=== PATIENT | male | born 1980 | race Two or more races ===

== ENCOUNTER 2017-01-22 21:25 | Emergency (ER) | payer MEDICAID ==
[~2017-01-22] VITALS: Ht 193 cm; Wt 181.4 kg
[~2017-01-22 21:25] MED LIST: BACL10TA; CARBAMAZEPINE PO; CLIN1CAP4 PO; CLOP75TA28; FAM20T PO; FURO20TA3 PO; LEVO500T3 PO; NOR5T PO; PHEN100C70; POT10T PO; WARF2TAB49 PO; WARF5TAB71 PO
[2017-01-22 22:52] LABS: Basophils # (auto) 0 uL; Basophils % (auto) 0.5 % (0.0-2.0); Eosinophils # (auto) 0.4 uL; Eosinophils % (auto) 3.7 % (0.0-7.0); Hematocrit 41.3 % (41.0-53.0); Hemoglobin 13.6 g/dL (13.5-17.5); Lymphocytes # (auto) 3.4 uL; Lymphocytes % (auto) 34.7 % (10.0-50.0); Mean Corpuscular Hemoglobin 27.6 pg (28.0-32.0); Mean Corpuscular Volume 83.7 fL (80.0-100.0); Mean Platelet Volume 7.7 fL (7.4-10.4); Monocytes # (auto) 0.5 uL; Monocytes % (auto) 5.4 % (0.0-12.0); Neutrophils # (auto) 5.4 uL; Neutrophils % (auto) 55.7 % (37.0-80.0); Platelet Count (auto) 293 10^3/uL (140-450); Red Cell Distribution Width 15.1 % (11.6-16.0); White Blood Cell 9.7 10^3/uL (4.4-10.8)
[2017-01-22 23:16] LABS: Albumin 3.7 g/dL (3.4-5.0); BUN/Creatinine Ratio 20.3; Calcium 8.3 mg/dL (8.5-10.1); Potassium 4.1 mmol/L (3.5-5.1)
[2017-01-22 23:19] LABS: Bilirubin, Total 0.4 mg/dL (0.2-1.0); Total Protein 7.2 g/dL (6.4-8.2)
[2017-01-23] MEDS ORDERED: CLINDAMYCIN 600 MG/4 ML VL IM ONE (04:15)
[2017-01-23 06:57] VITALS: BP 121/76
== END 2017-01-23 06:59 | disposition home or self-care (01) ==
LOC: ER 21:42
DX: L03.116 Cellulitis of left lower limb (principal); I10 Essential (primary) hypertension; F17.210 Nicotine dependence, cigarettes, uncomplicated; L97.929 Non-pressure chronic ulcer of unspecified part of left lower leg with unspecified severity; Z86.718 Personal history of other venous thrombosis and embolism; E66.01 Morbid (severe) obesity due to excess calories; Z68.42 Body mass index [BMI] 45.0-49.9, adult; Z79.01 Long term (current) use of anticoagulants
CPT/HCPCS: 36415; 73590; 80053; 85025; 87077; 87186; 87205; 96372

== ENCOUNTER 2017-09-14 17:53 | Emergency (ER) | payer MEDICAID ==
[~2017-09-14] VITALS: Ht 190.5 cm; Wt 176.4 kg
[~2017-09-14 17:53] MED LIST changes: +HYDR-4683 PO; +LEVO500T21 PO; -LEVO500T3 PO; -NOR5T PO
[2017-09-14 19:26] LABS: Basophils # (auto) 0.1 uL; Basophils % (auto) 0.7 % (0.0-2.0); Eosinophils # (auto) 0.2 uL; Eosinophils % (auto) 1.9 % (0.0-7.0); Hematocrit 42.9 % (41.0-53.0); Hemoglobin 14.4 g/dL (13.5-17.5); Lymphocytes # (auto) 3.2 uL; Lymphocytes % (auto) 28.7 % (10.0-50.0); Mean Corpuscular Hemoglobin 28.1 pg (28.0-32.0); Mean Corpuscular Hgb Conc. 33.6 g/dL (32.0-36.0); Mean Corpuscular Volume 83.6 fL (80.0-100.0); Mean Platelet Volume 7.2 fL (6.9-10.8); Monocytes # (auto) 0.7 uL; Monocytes % (auto) 6.6 % (0.0-12.0); Neutrophils # (auto) 7.1 uL; Neutrophils % (auto) 62.1 % (37.0-80.0); Nucleated Red Blood Cells % 0.2 %; Platelet Count (auto) 305 10^3/uL (140-450); Red Cell Distribution Width 14.8 % (11.8-14.3); White Blood Cell 11.3 10^3/uL (4.4-10.8)
[2017-09-14 19:55] LABS: Albumin 3.9 g/dL (3.4-5.0); BUN/Creatinine Ratio 19.5; Bilirubin, Total 0.6 mg/dL (0.2-1.0); Calcium 8.5 mg/dL (8.5-10.1); Potassium 4.1 mmol/L (3.5-5.1); Total Protein 7.9 g/dL (6.4-8.2)
[2017-09-15] MEDS ORDERED: SILVER SULFADIAZINE 1 % TOPICAL CREAM 50GM TOP ONE ×2 (01:23→01:45)
[2017-09-15 01:45] VITALS: BP 110/70
== END 2017-09-15 01:54 | disposition home or self-care (01) ==
LOC: ER 18:03
DX: I87.2 Venous insufficiency (chronic) (peripheral) (principal); L97.929 Non-pressure chronic ulcer of unspecified part of left lower leg with unspecified severity; Z79.01 Long term (current) use of anticoagulants
CPT/HCPCS: 36415; 80053; 85025; 93971

== ENCOUNTER 2018-06-09 04:43 | Emergency (ER) | payer MEDICAID ==
[~2018-06-09] VITALS: Ht 188 cm; Wt 181.4 kg
[2018-06-09 06:36] LABS: Basophils # (auto) 0 uL; Basophils % (auto) 0.5 % (0.0-2.0); Eosinophils # (auto) 0.1 uL; Eosinophils % (auto) 1.7 % (0.0-7.0); Hematocrit 44.8 % (41.0-53.0); Hemoglobin 15.2 g/dL (13.5-17.5); Lymphocytes # (auto) 2.8 uL; Lymphocytes % (auto) 33.9 % (10.0-50.0); Mean Corpuscular Hemoglobin 28.6 pg (28.0-32.0); Mean Corpuscular Hgb Conc. 33.9 g/dL (32.0-36.0); Mean Corpuscular Volume 84.6 fL (80.0-100.0); Monocytes # (auto) 0.6 uL; Monocytes % (auto) 6.9 % (0.0-12.0); Neutrophils # (auto) 4.8 uL; Nucleated Red Blood Cells % 0.3 %; Platelet Count (auto) 258 10^3/uL (140-450); Red Cell Distribution Width 14.6 % (11.8-14.3); White Blood Cell 8.4 10^3/uL (4.4-10.8)
[2018-06-09 06:59] LABS: Albumin 3.9 g/dL (3.4-5.0); BUN/Creatinine Ratio 20.3; Bilirubin, Total 0.8 mg/dL (0.2-1.0); Calcium 8.4 mg/dL (8.5-10.1); Potassium 4.1 mmol/L (3.5-5.1); Total Protein 7.6 g/dL (6.4-8.2)
[2018-06-09] MEDS ORDERED: KETOROLAC TROMETH 30 MG/ML 1ML VIAL IV ONE (07:00)
[2018-06-09 07:26] VITALS: BP 144/70
[2018-06-09] MEDS ORDERED: ENOXAPARIN SOD 100 MG/1 ML SYRINGE SC ONE (09:15)
== END 2018-06-09 09:33 | disposition home or self-care (01) ==
LOC: EDUNIT# 04:43 → ER 04:46
DX: M79.605 Pain in left leg (principal); E66.01 Morbid (severe) obesity due to excess calories; Z79.01 Long term (current) use of anticoagulants; Z79.899 Other long term (current) drug therapy; Z86.718 Personal history of other venous thrombosis and embolism; Z68.43 Body mass index [BMI] 50.0-59.9, adult
CPT/HCPCS: 36415; 80053; 85025; 85379; 93971; 96372; 96374; 99285; J1650; J1885

== ENCOUNTER 2018-06-15 11:40 | Emergency (ER) | payer MEDICAID ==
[~2018-06-15] VITALS: Ht 185.4 cm; Wt 181.4 kg
[2018-06-15] MEDS ORDERED: HYDROcodone-ACET 10/325MG TAB PO ONE (11:45)
[2018-06-15 11:47] VITALS: BP 140/78
== END 2018-06-15 12:17 | disposition home or self-care (01) ==
LOC: EDBD 11:40 → ER 11:40
DX: M79.605 Pain in left leg (principal); E66.01 Morbid (severe) obesity due to excess calories; F17.210 Nicotine dependence, cigarettes, uncomplicated; Z79.01 Long term (current) use of anticoagulants; Z79.899 Other long term (current) drug therapy; Z86.718 Personal history of other venous thrombosis and embolism; Z68.43 Body mass index [BMI] 50.0-59.9, adult

== ENCOUNTER 2018-10-26 20:27 | Emergency (ER) | payer MEDICAID ==
[~2018-10-26] VITALS: Ht 185.4 cm; Wt 195.0 kg
[2018-10-26 22:10] LABS: Basophils # (auto) 0 uL; Basophils % (auto) 0.5 % (0.0-2.0); Eosinophils # (auto) 0.3 uL; Eosinophils % (auto) 3.2 % (0.0-7.0); Hematocrit 37.2 % (41.0-53.0); Hemoglobin 12.2 g/dL (13.5-17.5); Lymphocytes # (auto) 1.9 uL; Lymphocytes % (auto) 20.7 % (10.0-50.0); Mean Corpuscular Hemoglobin 28.1 pg (28.0-32.0); Mean Corpuscular Hgb Conc. 32.9 g/dL (32.0-36.0); Mean Corpuscular Volume 85.3 fL (80.0-100.0); Monocytes # (auto) 0.8 uL; Monocytes % (auto) 8.4 % (0.0-12.0); Neutrophils # (auto) 6.1 uL; Neutrophils % (auto) 67.2 % (37.0-80.0); Platelet Count (auto) 301 10^3/uL (140-450); Red Blood Cells 4.36 10^6/uL (4.5-5.90); Red Cell Distribution Width 14.9 % (11.8-14.3)
[2018-10-26 22:26] LABS: INR 0.97 (0.9-1.15); Partial Thromboplastin Time 28.3 sec (23.78-33.04); Prothrombin Time 10.4 sec (9.27-12.13)
[2018-10-26 22:44] LABS: Alanine Aminotransferase 33 U/L (16-61); Albumin 3.5 g/dL (3.4-5.0); Anion Gap 5 (5-15); Blood Urea Nitrogen 13 mg/dL (7-18); Calcium 8.1 mg/dL (8.5-10.1); Carbon Dioxide 25 mmol/L (21-32); Chloride 110 mmol/L (98-107); Glucose 98 mg/dL (74-106); Magnesium 1.9 mg/dL (1.6-2.6); Potassium 4.1 mmol/L (3.5-5.1); Sodium 140 mmol/L (136-145)
[2018-10-26 22:51] LABS: Alkaline Phosphatase 94 U/L (45-117); Aspartate Aminotransferase 17 U/L (15-37); BUN/Creatinine Ratio 18.6; Bilirubin, Total 0.5 mg/dL (0.2-1.0); GFR African American 161 mL/min; GFR Non-African American 133 mL/min; Total Protein 7.4 g/dL (6.4-8.2)
[2018-10-27 01:00] VITALS: BP 110/55
[2018-10-27] MEDS ORDERED: ENOXAPARIN SOD 150 MG/1 ML SYRINGE SC ONE (01:00)
[2018-10-27] MEDS ORDERED: ACETAMINOPHEN 325 MG TAB PO PRN (01:15)
[2018-10-27] MEDS ORDERED: TEMAZEPAM 15 MG CAP PO PRN (01:15)
[2018-10-27] MEDS ORDERED: ONDANSETRON HCL 4 MG/2 ML VIAL IV PRN (01:15)
[2018-10-27] MEDS ORDERED: HYDROcodone-ACET 5/325MG TAB PO PRN (01:15)
[2018-10-27] MEDS ORDERED: carBAMazepine 200 MG TAB PO SCH (06:00)
[2018-10-27] MEDS ORDERED: CLOPIDOGREL BISULFATE 75 MG TAB PO SCH (10:00)
[2018-10-27] MEDS ORDERED: ENOXAPARIN SOD 100 MG/1 ML SYRINGE SC SCH (10:00)
[2018-10-27] MEDS ORDERED: FAMOTIDINE 20 MG TAB PO SCH (10:00)
[2018-10-27] MEDS ORDERED: PHENYTOIN SODIUM 100 MG CAP PO SCH (22:00)
== END 2018-10-27 01:56 | disposition left against medical advice (07) ==
LOC: EDBD 20:27 → ER 20:36
DX: I82.402 Acute embolism and thrombosis of unspecified deep veins of left lower extremity (principal); Z91.14 Patient's other noncompliance with medication regimen; F17.210 Nicotine dependence, cigarettes, uncomplicated; Z79.899 Other long term (current) drug therapy
CPT/HCPCS: 36415; 71045; 80053; 83735; 83880; 84443; 84484; 85025; 85379; 85610; 85730; 93971

== ENCOUNTER 2020-04-30 20:50 | Inpatient (IN) | payer MEDICAID ==
[~2020-04-30] VITALS: Ht 195.6 cm; Wt 181.5 kg
[~2020-04-30 20:50] MED LIST changes: +APIX5TAB OR; -CARBAMAZEPINE PO; -CLIN1CAP4 PO; +CLIN300C8 PO; -CLOP75TA28; -FAM20T PO; +FAMO20TA10 PO; -FURO20TA3 PO; -HYDR-4683 PO; +HYDR-4833 PO; -PHEN100C70; -POT10T PO; -WARF2TAB49 PO; -WARF5TAB71 PO
[2020-05-01 00:19] LABS: Basophils # (auto) 0.1 10 ^3/uL (0-0.2); Basophils % (auto) 0.7 % (0.0-2.0); Eosinophils # (auto) 0.4 10 ^3/uL (0-0.8); Eosinophils % (auto) 3.7 % (0.0-7.0); Hematocrit 40.9 % (41.0-53.0); Hemoglobin 13.4 g/dL (13.5-17.5); Lymphocytes # (auto) 2.8 10 ^3/uL (0.4-5.4); Lymphocytes % (auto) 26.3 % (10.0-50.0); Mean Corpuscular Hemoglobin 27.4 pg (28.0-32.0); Mean Corpuscular Hgb Conc. 32.7 g/dL (32.0-36.0); Mean Corpuscular Volume 83.7 fL (80.0-100.0); Monocytes # (auto) 0.9 10 ^3/uL (0-1.3); Monocytes % (auto) 8.4 % (0.0-12.0); Neutrophils # (auto) 6.4 10 ^3/uL (1.6-8.6); Neutrophils % (auto) 60.9 % (37.0-80.0); Nucleated Red Blood Cells % 0.1 %; Platelet Count (auto) 203 10^3/uL (140-450); Red Blood Cells 4.88 10^6/uL (4.5-5.90); Red Cell Distribution Width 15.9 % (11.8-14.3); White Blood Cell 10.5 10^3/uL (4.4-10.8)
[2020-05-01 00:27] LABS: Alanine Aminotransferase 32 U/L (16-61); Albumin 3.5 g/dL (3.4-5.0); Anion Gap 7 (5-15); Aspartate Aminotransferase 20 U/L (15-37); BUN/Creatinine Ratio 19.8; Blood Urea Nitrogen 16 mg/dL (7-18); Calcium 7.9 mg/dL (8.5-10.1); Carbon Dioxide 24 mmol/L (21-32); Chloride 109 mmol/L (98-107); GFR African American 136 mL/min; GFR Non-African American 112 mL/min; Glucose 101 mg/dL (74-106); Potassium 4.2 mmol/L (3.5-5.1); Sodium 140 mmol/L (136-145)
[2020-05-01 00:29] LABS: Alkaline Phosphatase 85 U/L (45-117); Total Protein 7.4 g/dL (6.4-8.2)
[2020-05-01 00:36] LABS: INR 0.99 (0.9-1.15); Partial Thromboplastin Time 25.1 sec (23.64-32.05)
[2020-05-01] MEDS ORDERED: cefTRIAXone 1GM/50ML D5W 50 ML IV ONE (02:45)
[2020-05-01] MEDS ORDERED: CLINDAMYCIN 900MG IV 50 ML IV ONE (02:45)
[2020-05-01] MEDS ORDERED: ACETAMINOPHEN 325 MG TAB PO PRN (05:00)
[2020-05-01] MEDS ORDERED: TEMAZEPAM 15 MG CAP PO PRN (05:00)
[2020-05-01] MEDS ORDERED: ONDANSETRON HCL 4 MG/2 ML VIAL IV PRN (05:00)
[2020-05-01] MEDS ORDERED: CLINDAMYCIN 600MG IV 50 ML IV SCH ×2 (06:00→14:00)
[2020-05-01 08:09] VITALS: BP 94/46
[2020-05-01] MEDS ORDERED: cefTRIAXone 1GM/50ML D5W 50 ML IV SCH (09:00)
[2020-05-01] MEDS ORDERED: APIX5TAB PO (09:56)
[2020-05-01] MEDS ORDERED: ENOXAPARIN SOD 100 MG/1 ML SYRINGE SC SCH (10:00)
[2020-05-01] MEDS ORDERED: APIXABAN 5 MG TAB PO SCH (10:00)
[2020-05-01] MEDS ORDERED: FAMOTIDINE 20 MG TAB PO SCH (10:00)
[2020-05-01] MEDS ORDERED: CLIN150C PO (11:32)
== END 2020-05-01 13:30 | disposition home or self-care (01) | DRG 383 ==
LOC: EDBD 20:50 → ER 20:52 → OVERFLOW 20:53 → MERGE 20:53 → WEST WING 05-01 09:37
PROVIDERS: ADMIT Nurse Practitioner; ATTEND Internal Medicine
DX: L03.116 Cellulitis of left lower limb (principal); I82.412 Acute embolism and thrombosis of left femoral vein; E66.01 Morbid (severe) obesity due to excess calories; L02.416 Cutaneous abscess of left lower limb; Z86.718 Personal history of other venous thrombosis and embolism; Z79.01 Long term (current) use of anticoagulants; Z68.42 Body mass index [BMI] 45.0-49.9, adult; Z79.899 Other long term (current) drug therapy; D68.69 Other thrombophilia
CPT/HCPCS: 36415; 73700; 80053; 85025; 85610; 85730; 87077; 87186; 87205; 93971; 96365; 96367; G0378; J0696; J3490

== ENCOUNTER 2020-08-20 14:46 | Emergency (ER) | payer MEDICAID ==
[~2020-08-20] VITALS: Ht 180.3 cm; Wt 181.4 kg
[~2020-08-20 14:46] MED LIST changes: +APIX5TAB PO; +CLIN150C PO
[2020-08-20 23:53] VITALS: BP 155/81
== END 2020-08-20 23:56 | disposition home or self-care (01) ==
LOC: ER 14:46 → EDBD 14:46 → ER 23:56
DX: S83.92XA Sprain of unspecified site of left knee, initial encounter (principal); S33.5XXA Sprain of ligaments of lumbar spine, initial encounter; L30.9 Dermatitis, unspecified; I10 Essential (primary) hypertension; Z88.0 Allergy status to penicillin; Z79.899 Other long term (current) drug therapy; W19.XXXA Unspecified fall, initial encounter; Y93.89 Activity, other specified; Y92.89 Other specified places as the place of occurrence of the external cause; Y99.8 Other external cause status
CPT/HCPCS: 72100; 73562; 73610

== ENCOUNTER 2020-08-30 13:04 | Inpatient (IN) | payer MEDICAID ==
[~2020-08-30] VITALS: Ht 195.6 cm; Wt 181.4 kg
[2020-08-30 14:25] LABS: Albumin 3.1 g/dL (3.4-5.0); Anion Gap 6 (5-15); Blood Urea Nitrogen 12 mg/dL (7-18); Carbon Dioxide 21 mmol/L (21-32); Chloride 108 mmol/L (98-107); Glucose 117 mg/dL (74-106); Potassium 5.1 mmol/L (3.5-5.1); Sodium 135 mmol/L (136-145)
[2020-08-30 14:29] LABS: Alanine Aminotransferase 29 U/L (16-61); Alkaline Phosphatase 74 U/L (45-117); Aspartate Aminotransferase 62 U/L (15-37); BUN/Creatinine Ratio 12.6; Bilirubin, Total 1.5 mg/dL (0.2-1.0); GFR African American 112 mL/min; GFR Non-African American 93 mL/min
[2020-08-30 16:31] LABS: Basophils # (auto) 0.1 10 ^3/uL (0-0.2); Basophils % (auto) 0.5 % (0.0-2.0); Eosinophils # (auto) 0 10 ^3/uL (0-0.8); Eosinophils % (auto) 0.1 % (0.0-7.0); Hematocrit 42.2 % (41.0-53.0); Lymphocytes % (auto) 18.5 % (10.0-50.0); Mean Corpuscular Hemoglobin 28.4 pg (28.0-32.0); Mean Corpuscular Hgb Conc. 33.2 g/dL (32.0-36.0); Mean Corpuscular Volume 85.5 fL (80.0-100.0); Monocytes # (auto) 1.1 10 ^3/uL (0-1.3); Monocytes % (auto) 9.8 % (0.0-12.0); Neutrophils # (auto) 7.8 10 ^3/uL (1.6-8.6); Neutrophils % (auto) 71.1 % (37.0-80.0); Nucleated Red Blood Cells % 0.1 %; Platelet Count (auto) 237 10^3/uL (140-450); Red Blood Cells 4.93 10^6/uL (4.5-5.90); Red Cell Distribution Width 15.1 % (11.8-14.3)
[2020-08-30] MEDS ORDERED: ACETAMINOPHEN 500 MG TAB PO PRN (17:45)
[2020-08-30] MEDS ORDERED: ONDANSETRON HCL 4 MG/2 ML VIAL IV PRN (17:45)
[2020-08-30] MEDS ORDERED: DOCUSATE SOD 100 MG CAP PO PRN (17:45)
[2020-08-30] MEDS ORDERED: NITROGLYCERIN 0.4 MG SL TAB SL PRN (17:45)
[2020-08-30] MEDS ORDERED: SODIUM CHLORIDE 0.9% 1,000 ML IV ONE (17:45)
[2020-08-30] MEDS ORDERED: MORPHINE SULF INJ 2 MG/ML SYRINGE 1ML IV PRN ×2 (17:45)
[2020-08-30] MEDS: HYDROcodone-ACET 5/325MG TAB PO PRN (19:40)
[2020-08-30 20:00] LABS: INR 1.08 (0.9-1.15); Partial Thromboplastin Time 21.7 sec (23.0-31.2)
[2020-08-30 20:38] LABS: Urine Bacteria NONE SEEN /hpf (None Seen); Urine Blood Negative /uL (Negative); Urine Hyaline Cast FEW /lpf (0 - 2); Urine Mucus FEW (None Seen); Urine WBC <1 /hpf (0 - 3)
[2020-08-30 20:47] LABS: Alcohol, Urine < 3.0 mg/dL (0-10); Amphetamine Screen, Urine NEGATIVE (NEGATIVE); Barbiturate Scree,Urine NEGATIVE (NEGATIVE); Benzodiazephine Screen, Urine NEGATIVE (NEGATIVE); Cannabinoid Screen, Urine NEGATIVE (NEGATIVE); Cocaine Screen, Urine NEGATIVE (NEGATIVE); Opiate Scree,Urine NEGATIVE (NEGATIVE); Phencyclidine Screen, Urine NEGATIVE (NEGATIVE)
[2020-08-30] MEDS: APIXABAN 5 MG TAB PO SCH (21:47)
[2020-08-30] MEDS: METOPROLOL TARTRATE 25 MG TAB PO SCH (21:48)
[2020-08-31 03:51] VITALS: BP 121/74
--- NOTE | 2020-08-31 03:51 | NUR ---
PATIENT ARRIVED TO THE UNIT IA STRETCHER FROM THE EMERGENCY ROOM. CAME TO ER WITH AFIB W/RVR IN THE 150'S CURRENTLY HE IS STILL IN AFIB WITH A CONTROLLED RATE IN THE 70'S-80'S. PATIENT WAS ABLE TO AMBULATE WITH STANDBY ASSISTANCE TO THE BED. COMPLAINS OF 5/10 PAIN TO THE LEFT LEG. PATIENT STATES HE HAS A BLOOD CLOT TO THE LEFT LEG. HE ALSO HAS 2 SMALL CIRCULAR HOLES (1 TO THE LATERAL SIDE AND 1 TO THE POSTERIOR). HAS NO COMPLAINTS OF SHORTNESS OF BREATH. BED IS LOCKED IN LOWEST POSITION WITH SIDE RAILS UP X2. ALL QUESTIONS REGARDING PATIENT CARE ANSWERED. WILL CONTINUE TO MONITOR.
[2020-08-31] MEDS: HYDROcodone-ACET 5/325MG TAB PO PRN (04:30)
--- NOTE | 2020-08-31 04:39 | NUR ---
WOUND PICTURES OF LEFT LEG WOUNDS TAKEN. PICTURES ON CENTRAL CAMERA.
[2020-08-31 05:00] VITALS: BP 121/74
--- NOTE | 2020-08-31 05:50 | NUR ---
[facility] SWAB SENT TO LAB AT THIS TIME.
[2020-08-31] MEDS ORDERED: INFLUENZA QUAD 2020-2021 0.5 ML SYRG IM ONE (06:00)
[2020-08-31] MEDS ORDERED: PNEUMOCOCCAL VACC POLYS 25 MCG/0.5 ML VIAL IM ONE (06:00)
--- NOTE | 2020-08-31 07:30 | NUR ---
Opening Shift Note RECEIVED REPORT FROM NOC RN. Assumed care of patient, awake and alert. No S/S of distress/SOB or pain. BED IN LOWEST, LOCKED POSITION WITH SIDERAILS UP x2 AND CALL LIGHT WITHIN REACH. Instructed on POC and to call for assist PRN, will continue to monitor for changes Q1hr and PRN.
[2020-08-31 09:00] VITALS: BP 125/69
[2020-08-31] MEDS ORDERED: PANTOPRAZOLE 40 MG TAB PO SCH (10:00)
[2020-08-31] MEDS: APIXABAN 5 MG TAB PO SCH (10:16)
[2020-08-31] MEDS: METOPROLOL TARTRATE 25 MG TAB PO SCH (10:16)
[2020-08-31 13:00] VITALS: BP 132/78
--- NOTE | 2020-08-31 14:15 | NUR ---
Discharge instructions given as ordered. Encourage to follow up with PMD as instructed. All questions and concerns addressed. Patient verbalized understanding. Medication reconciliation form completed and copy given to patient. IV removed with catheter intact, pressure dressing applied. Telemetry unit returned to ICU. Patient taken to vehicle via wheelchair with all personal belongings, accompanied by staff. No distress noted at time of departure.
--- NOTE | 2020-09-03 10:24 | NUR ---
SEWING LINE BALER WEEKEND 08/31/20 No page regarding social service consult for readmission score.
== END 2020-08-31 14:45 | disposition home or self-care (01) | DRG 201 ==
LOC: ER 13:04 → TELE 17:35 → TELE-EAST 08-31 04:23
PROVIDERS: ADMIT Nurse Practitioner Acute Care; ATTEND Nurse Practitioner Acute Care
DX: I48.91 Unspecified atrial fibrillation (principal); E66.01 Morbid (severe) obesity due to excess calories; E88.09 Other disorders of plasma-protein metabolism, not elsewhere classified; E87.1 Hypo-osmolality and hyponatremia; F17.210 Nicotine dependence, cigarettes, uncomplicated; I10 Essential (primary) hypertension; I48.92 Unspecified atrial flutter; Z20.828 Contact with and (suspected) exposure to other viral communicable diseases; Z79.01 Long term (current) use of anticoagulants; Z79.899 Other long term (current) drug therapy; Z82.49 Family history of ischemic heart disease and other diseases of the circulatory system; Z86.718 Personal history of other venous thrombosis and embolism; Z83.3 Family history of diabetes mellitus; Z88.0 Allergy status to penicillin; Z88.1 Allergy status to other antibiotic agents; Z68.42 Body mass index [BMI] 45.0-49.9, adult
CPT/HCPCS: 36415; 71045; 73060; 73560; 80053; 80307; 81001; 83735; 83880; 84484; 85025; 85610; 85730; 87081; 87426; G0378

== ENCOUNTER 2021-03-20 19:10 | Inpatient (IN) | payer MEDICAID ==
[~2021-03-20] VITALS: Ht 195.6 cm; Wt 174.0 kg
[~2021-03-20 19:10] MED LIST changes: -LEVO500T21 PO; +LEVO500T31 PO
[2021-03-20] MEDS ORDERED: ACETAMINOPHEN 325 MG TAB PO ONE (20:30)
[2021-03-20] MEDS ORDERED: DexAMETHasone SOD PHOS 10MG/1ML VIAL INJ IV ONE (20:45)
[2021-03-20] MEDS ORDERED: SODIUM CHLORIDE 0.9% 1,000 ML IV ONE (20:45)
[2021-03-20 20:56] LABS: Basophils # (auto) 0 10 ^3/uL (0-0.2); Basophils % (auto) 0.2 % (0.0-2.0); Eosinophils # (auto) 0 10 ^3/uL (0-0.8); Hematocrit 45.5 % (41.0-53.0); Hemoglobin 15.5 g/dL (13.5-17.5); Lymphocytes % (auto) 24.1 % (10.0-50.0); Mean Corpuscular Hemoglobin 28.2 pg (28.0-32.0); Mean Corpuscular Hgb Conc. 34.1 g/dL (32.0-36.0); Mean Corpuscular Volume 82.6 fL (80.0-100.0); Monocytes # (auto) 0.5 10 ^3/uL (0-1.3); Monocytes % (auto) 11.8 % (0.0-12.0); Neutrophils # (auto) 2.8 10 ^3/uL (1.6-8.6); Neutrophils % (auto) 63.9 % (37.0-80.0); Nucleated Red Blood Cells % 0.2 %; Platelet Count (auto) 182 10^3/uL (140-450); Red Blood Cells 5.51 10^6/uL (4.5-5.90); Red Cell Distribution Width 15.7 % (11.8-14.3); White Blood Cell 4.3 10^3/uL (4.4-10.8)
[2021-03-20 21:09] LABS: INR 1.08 (0.9-1.15); Partial Thromboplastin Time 32.2 sec (23.0-31.2)
[2021-03-20 21:11] LABS: Anion Gap 10 (5-15); Blood Urea Nitrogen 13 mg/dL (7-18); Calcium 7.7 mg/dL (8.5-10.1); Carbon Dioxide 22 mmol/L (21-32); Chloride 104 mmol/L (98-107); Glucose 98 mg/dL (74-106); Potassium 4.6 mmol/L (3.5-5.1); Sodium 136 mmol/L (136-145)
[2021-03-20 21:16] LABS: Alanine Aminotransferase 64 U/L (16-61); Alkaline Phosphatase 78 U/L (45-117); Aspartate Aminotransferase 134 U/L (15-37); BUN/Creatinine Ratio 13.4; Bilirubin, Total 1.2 mg/dL (0.2-1.0); GFR African American 110 mL/min; GFR Non-African American 91 mL/min; Total Protein 7.4 g/dL (6.4-8.2)
[2021-03-20 23:00] LABS: Urine Bacteria NONE SEEN /hpf (None Seen); Urine Blood 1+ /uL (Negative); Urine Specific Gravity 1.022 (1.001-1.035); Urine WBC 1 /hpf (0 - 3)
[2021-03-20] MEDS ORDERED: IOHEXOL 350 MG/ML 100ML IJ ONE (23:59)
[2021-03-21] VITALS (9 sets, daily range): BP systolic 96–154; BP diastolic 53–91
[2021-03-21] MEDS ORDERED: HYDROcodone-ACET 5/325MG TAB PO PRN (01:00)
[2021-03-21] MEDS ORDERED: NITROGLYCERIN 0.4 MG SL TAB SL PRN (01:00)
[2021-03-21] MEDS ORDERED: MORPHINE SULF INJ 2 MG/ML SYRINGE 1ML IV PRN (01:00)
[2021-03-21] MEDS ORDERED: ONDANSETRON HCL 4 MG/2 ML VIAL IV PRN (01:00)
[2021-03-21] MEDS ORDERED: DOCUSATE SOD 100 MG CAP PO PRN (01:00)
[2021-03-21] MEDS ORDERED: PNEUMOCOCCAL VACC POLYS 25 MCG/0.5 ML VIAL IM ONE (04:15)
[2021-03-21] MEDS ORDERED: INFLUENZA QUAD 2020-2021 0.5 ML SYRG IM ONE (04:15)
[2021-03-21] MEDS: SODIUM CHLOR 0.9% PF (SALINE LOCK) 10ML VIAL/SYR IV SCH ×3 (05:41→22:00)
[2021-03-21 07:09] LABS: Basophils # (auto) 0 10 ^3/uL (0-0.2); Basophils % (auto) 0.1 % (0.0-2.0); Eosinophils # (auto) 0 10 ^3/uL (0-0.8); Hematocrit 46.3 % (41.0-53.0); Hemoglobin 15.6 g/dL (13.5-17.5); Lymphocytes # (auto) 0.7 10 ^3/uL (0.4-5.4); Lymphocytes % (auto) 24.4 % (10.0-50.0); Mean Corpuscular Hemoglobin 27.9 pg (28.0-32.0); Mean Corpuscular Hgb Conc. 33.7 g/dL (32.0-36.0); Mean Corpuscular Volume 82.8 fL (80.0-100.0); Monocytes # (auto) 0.3 10 ^3/uL (0-1.3); Monocytes % (auto) 9.5 % (0.0-12.0); Nucleated Red Blood Cells % 0.4 %; Platelet Count (auto) 192 10^3/uL (140-450); Potassium 4.5 mmol/L (3.5-5.1); Red Blood Cells 5.59 10^6/uL (4.5-5.90); Red Cell Distribution Width 16.3 % (11.8-14.3)
[2021-03-21 07:27] LABS: Albumin 2.8 g/dL (3.4-5.0); BUN/Creatinine Ratio 19.7; Bilirubin, Total 1.1 mg/dL (0.2-1.0); Calcium 7.7 mg/dL (8.5-10.1); Total Protein 7.1 g/dL (6.4-8.2)
[2021-03-21] MEDS: BUDESONIDE (INHALATION) 180 MCG IH IN SCH ×2 (08:30→22:29)
[2021-03-21] MEDS ORDERED: ENOXAPARIN SOD 40 MG/0.4 ML SYRINGE SC SCH ×2 (10:00→22:00)
[2021-03-21] MEDS ORDERED: MULTIPLE VITAMIN TAB PO SCH (10:00)
[2021-03-21] MEDS: FAMOTIDINE (10MG/ML) 2ML VL IV SCH ×2 (10:43→22:00)
[2021-03-21] MEDS: DexAMETHasone SOD PHOS 10MG/1ML VIAL INJ IV SCH (10:44)
[2021-03-21] MEDS: CHOLECALCIFEROL (VITD3) 2,000 UNIT CAP/TAB PO SCH (10:46)
[2021-03-21] MEDS: ASCORBIC ACID 1,000 MG TAB PO SCH (10:46)
[2021-03-21] MEDS: ZINC SULFATE 220mg CAP or TAB PO SCH (10:46)
[2021-03-21] MEDS: DOXYCYCLINE 100MG/250ML 250 ML IV SCH ×2 (10:47→22:00)
[2021-03-21] MEDS ORDERED: REMDESIVIR PER PHARMACY 0 ML IV SCH (13:00)
[2021-03-21] MEDS ORDERED: FUROSEMIDE 20 MG/2 ML VIAL IV ONE (13:00)
[2021-03-21] MEDS ORDERED: guaiFENesin-DM 100/10mg/5ml SYR PO PRN (13:15)
[2021-03-21] MEDS ORDERED: REMDESIVIR 200 MG in NS 210ml LOADING DOSE ADULT IV ONE (15:00)
[2021-03-21] MEDS ORDERED: APIXABAN 5 MG TAB PO SCH (22:00)
[2021-03-21] MEDS: ALBUTEROL SULF HFA 90MCG INH 200DOSE IN PRN (22:29)
[2021-03-22] VITALS (60 sets, daily range): BP systolic 78–158; BP diastolic 34–105
[2021-03-22] MEDS: SODIUM CHLOR 0.9% PF (SALINE LOCK) 10ML VIAL/SYR IV SCH ×3 (06:00→22:51)
[2021-03-22] MEDS: BUDESONIDE (INHALATION) 180 MCG IH IN SCH (07:38)
[2021-03-22] MEDS: ALBUTEROL SULF HFA 90MCG INH 200DOSE IN PRN (07:44)
[2021-03-22 09:00] LABS: Basophils # (auto) 0 10 ^3/uL (0-0.2); Basophils % (auto) 0.1 % (0.0-2.0); Eosinophils # (auto) 0 10 ^3/uL (0-0.8); Eosinophils % (auto) 0.1 % (0.0-7.0); Hematocrit 48.2 % (41.0-53.0); Hemoglobin 15.9 g/dL (13.5-17.5); Lymphocytes # (auto) 1.2 10 ^3/uL (0.4-5.4); Lymphocytes % (auto) 12.9 % (10.0-50.0); Mean Corpuscular Hemoglobin 27.5 pg (28.0-32.0); Mean Corpuscular Hgb Conc. 32.9 g/dL (32.0-36.0); Mean Corpuscular Volume 83.7 fL (80.0-100.0); Monocytes # (auto) 0.7 10 ^3/uL (0-1.3); Monocytes % (auto) 7.2 % (0.0-12.0); Neutrophils # (auto) 7.4 10 ^3/uL (1.6-8.6); Neutrophils % (auto) 79.7 % (37.0-80.0); Nucleated Red Blood Cells % 0.2 %; Platelet Count (auto) 272 10^3/uL (140-450); Red Blood Cells 5.76 10^6/uL (4.5-5.90); Red Cell Distribution Width 16.2 % (11.8-14.3); White Blood Cell 9.3 10^3/uL (4.4-10.8)
[2021-03-22 09:13] LABS: Albumin 2.9 g/dL (3.4-5.0); Magnesium 1.9 mg/dL (1.6-2.6); Potassium 4.1 mmol/L (3.5-5.1)
[2021-03-22 09:17] LABS: BUN/Creatinine Ratio 20.3; Bilirubin, Total 1.2 mg/dL (0.2-1.0); Total Protein 7.4 g/dL (6.4-8.2)
[2021-03-22] MEDS ORDERED: FUROSEMIDE 20 MG/2 ML VIAL IV SCH (10:00)
[2021-03-22] MEDS ORDERED: LORazepam 2MG/ML-1ML VIAL ONE ×3 (10:00→10:23)
[2021-03-22] MEDS ORDERED: ETOMIDATE (2MG/ML) 20ML VIAL IV ONE (10:24)
[2021-03-22] MEDS ORDERED: ROCURONIUM 10MG/ML 10ML VIAL IV ONE ×2 (10:24→10:31)
[2021-03-22] MEDS ORDERED: SUCCINYLCHOLINE CHLORIDE 20 MG/ML 10ML VIAL IV ONE (10:25)
[2021-03-22] MEDS ORDERED: LORazepam 2MG/ML-1ML VIAL IV PRN (10:30)
[2021-03-22] MEDS ORDERED: MAGNESIUM SULFATE 1GM/100ML 100 ML IV ONE (10:30)
[2021-03-22] MEDS ORDERED: MIDAZOLAM DRIP 50 mg/50mL 100 ML IV ONE (10:33)
[2021-03-22] MEDS ORDERED: NOREPINEPHRINE 8 MG/250ML KIT 250 ML IV ONE (10:34)
[2021-03-22] MEDS ORDERED: fentaNYL Drip 2500mCg/250mlNS 250 ML IV ONE (10:34)
[2021-03-22] MEDS ORDERED: PROPOFOL 100 ML IV ONE ×2 (10:34→12:27)
[2021-03-22] MEDS ORDERED: PANTOPRAZOLE 40 MG/10 ML VIAL INJ IV ONE (10:45)
[2021-03-22] MEDS ORDERED: MEROPENEM 1GM IVPB 100 ML IV ONE (10:45)
[2021-03-22] MEDS ORDERED: FUROSEMIDE 40 MG/4 ML VIAL IV ONE (10:45)
[2021-03-22] MEDS ORDERED: LIDOCAINE 2% (LOCAL ANESTH.) PF 5ml SDV ONE (10:48)
[2021-03-22] MEDS ORDERED: AMIODARONE HCL (50 MG/ ML) 3 ML VIAL IV ONE (10:55)
[2021-03-22] MEDS: PROPOFOL 100 ML IV SCH ×3 (11:00→22:10)
[2021-03-22] MEDS ORDERED: AMIODARONE HCL 150 MG in D5W 5% 100 ML IV ONE (11:00)
[2021-03-22] MEDS ORDERED: AMIODARONE 450mg/250ml AE 250 ML IV ONE (11:11)
[2021-03-22] MEDS ORDERED: AMIODARONE 450mg/250ml AE 250 ML IV SCH (11:15)
[2021-03-22] MEDS: fentaNYL Drip 2500mCg/250mlNS 250 ML IV SCH ×2 (12:00→20:20)
[2021-03-22] MEDS ORDERED: LIDOCAINE 2% JELLY 11ml (GLYDO) ONE (12:28)
[2021-03-22] MEDS: MIDAZOLAM DRIP 50 mg/50mL 50 ML IV SCH ×2 (14:07→17:37)
[2021-03-22] MEDS: CHOLECALCIFEROL (VITD3) 2,000 UNIT CAP/TAB PO SCH (15:33)
[2021-03-22] MEDS: ZINC SULFATE 220mg CAP or TAB PO SCH (15:33)
[2021-03-22] MEDS: ASCORBIC ACID 1,000 MG TAB PO SCH (15:33)
[2021-03-22] MEDS: DexAMETHasone SOD PHOS 10MG/1ML VIAL INJ IV SCH (15:34)
[2021-03-22] MEDS: ATRACURIUM BESYLATE 1,000 MG in D5W 5% 150 ML IV SCH (16:15)
[2021-03-22] MEDS: ACETAMINOPHEN 500 MG TAB PO PRN (16:22)
[2021-03-22] MEDS: REMDESIVIR 100mg 100 MG in SODIUM CHL 0.9% 230 ML IV SCH (16:31)
[2021-03-22] MEDS: AMIODARONE 450mg/250ml AE 250 ML IV SCH ×2 (18:04→20:00)
[2021-03-22] MEDS: MEROPENEM 1GM IVPB 100 ML IV SCH (18:18)
[2021-03-22] MEDS: NOREPINEPHRINE 8 MG/250ML KIT 250 ML IV SCH (20:00)
[2021-03-22] MEDS: BUDESONIDE (INHALATION) 0.5 MG/2 ML NEB NEB SCH (22:01)
[2021-03-22] MEDS: ALBUTEROL SULF 2.5 MG/0.5ML(0.5%) NEB SOLN NEB SCH (22:01)
[2021-03-22] MEDS: IPRATROPIUM BROM 0.5 MG/2.5ML INH SOL NEB SCH (22:01)
[2021-03-23] VITALS (97 sets, daily range): BP systolic 87–144; BP diastolic 37–86
[2021-03-23] MEDS: PROPOFOL 100 ML IV SCH ×8 (00:20→21:29)
[2021-03-23] MEDS: MEROPENEM 1GM IVPB 100 ML IV SCH ×3 (01:58→17:32)
[2021-03-23] MEDS: APIXABAN 5 MG TAB PO SCH ×3 (01:58→22:30)
[2021-03-23] MEDS: MIDAZOLAM DRIP 50 mg/50mL 50 ML IV SCH ×5 (02:17→22:32)
[2021-03-23] MEDS: NOREPINEPHRINE 8 MG/250ML KIT 250 ML IV SCH ×3 (02:40→11:43)
[2021-03-23] MEDS ORDERED: ATRACURIUM BESYLATE (10 MG/ ML) 10 ML VIAL ONE (05:32)
[2021-03-23] MEDS: SODIUM CHLOR 0.9% PF (SALINE LOCK) 10ML VIAL/SYR IV SCH ×3 (05:40→22:29)
[2021-03-23] MEDS: ATRACURIUM BESYLATE 1,000 MG in D5W 5% 150 ML IV SCH ×2 (06:30→15:54)
[2021-03-23] MEDS: BUDESONIDE (INHALATION) 0.5 MG/2 ML NEB NEB SCH ×2 (06:45→22:05)
[2021-03-23] MEDS: IPRATROPIUM BROM 0.5 MG/2.5ML INH SOL NEB SCH ×3 (06:45→22:05)
[2021-03-23] MEDS: ALBUTEROL SULF 2.5 MG/0.5ML(0.5%) NEB SOLN NEB SCH ×3 (06:45→22:05)
[2021-03-23] MEDS: AMIODARONE 450mg/250ml AE 250 ML IV SCH (10:07)
[2021-03-23] MEDS: fentaNYL Drip 2500mCg/250mlNS 250 ML IV SCH ×2 (10:11→22:33)
[2021-03-23] MEDS: PANTOPRAZOLE 40 MG/10 ML VIAL INJ IV SCH (10:14)
[2021-03-23] MEDS: CHOLECALCIFEROL (VITD3) 2,000 UNIT CAP/TAB PO SCH (10:14)
[2021-03-23] MEDS: DexAMETHasone SOD PHOS 10MG/1ML VIAL INJ IV SCH (10:14)
[2021-03-23] MEDS: ASCORBIC ACID 1,000 MG TAB PO SCH (10:15)
[2021-03-23] MEDS: ZINC SULFATE 220mg CAP or TAB PO SCH (10:15)
[2021-03-23] MEDS ORDERED: SODIUM BICARBONATE 8.4 % INJ 50ML VIAL IV ONE (11:15)
[2021-03-23] MEDS ORDERED: PHENYLEPHRINE IV 250 ML IV SCH (11:15)
[2021-03-23] MEDS: FUROSEMIDE 40 MG/4 ML VIAL IV SCH (12:54)
[2021-03-23] MEDS: REMDESIVIR 100mg 100 MG in SODIUM CHL 0.9% 230 ML IV SCH (15:53)
[2021-03-23] MEDS ORDERED: DIGOXIN (250MCG/ML) 2 ML AMPULE IV PRN ×2 (16:00)
[2021-03-23 16:39] LABS: Anion Gap 8 (5-15); Carbon Dioxide 28 mmol/L (21-32); Chloride 99 mmol/L (98-107); Potassium 5.4 mmol/L (3.5-5.1); Sodium 135 mmol/L (136-145)
[2021-03-23 16:44] LABS: Blood Urea Nitrogen 27 mg/dL (7-18); Glucose 281 mg/dL (74-106)
[2021-03-23 16:45] LABS: Alanine Aminotransferase 48 U/L (16-61); Albumin 2.4 g/dL (3.4-5.0); Alkaline Phosphatase 76 U/L (45-117); Aspartate Aminotransferase 71 U/L (15-37); BUN/Creatinine Ratio 13.9; Bilirubin, Total 2.7 mg/dL (0.2-1.0); CRP High Sensitivity 9.64 mg/dL (< 0.3); Calcium 7.2 mg/dL (8.5-10.1); GFR African American 49 mL/min; GFR Non-African American 41 mL/min; Magnesium 2.4 mg/dL (1.6-2.6); Total Protein 6.8 g/dL (6.4-8.2)
[2021-03-23] MEDS ORDERED: SODIUM ZIRCONIUM CYCL 10 GM PAK PO ONE (17:00)
[2021-03-24] VITALS (107 sets, daily range): BP systolic 94–144; BP diastolic 52–88
[2021-03-24] MEDS: AMIODARONE 450mg/250ml AE 250 ML IV SCH ×2 (01:00→16:05)
[2021-03-24] MEDS: MEROPENEM 1GM IVPB 100 ML IV SCH ×3 (05:29→17:42)
[2021-03-24] MEDS: MIDAZOLAM DRIP 50 mg/50mL 50 ML IV SCH ×4 (05:33→23:00)
[2021-03-24] MEDS: NOREPINEPHRINE 8 MG/250ML KIT 250 ML IV SCH ×2 (05:35→20:00)
[2021-03-24] MEDS: PROPOFOL 100 ML IV SCH ×5 (05:38→18:26)
[2021-03-24] MEDS: SODIUM CHLOR 0.9% PF (SALINE LOCK) 10ML VIAL/SYR IV SCH ×3 (06:00→22:00)
[2021-03-24] MEDS: ALBUTEROL SULF 2.5 MG/0.5ML(0.5%) NEB SOLN NEB SCH ×3 (06:46→18:10)
[2021-03-24] MEDS: IPRATROPIUM BROM 0.5 MG/2.5ML INH SOL NEB SCH ×3 (06:46→18:10)
[2021-03-24] MEDS: BUDESONIDE (INHALATION) 0.5 MG/2 ML NEB NEB SCH ×2 (06:46→18:10)
[2021-03-24 07:07] LABS: Basophils # (auto) 0 10 ^3/uL (0-0.2); Basophils % (auto) 0.1 % (0.0-2.0); Eosinophils # (auto) 0 10 ^3/uL (0-0.8); Hematocrit 40.9 % (41.0-53.0); Hemoglobin 13.7 g/dL (13.5-17.5); Lymphocytes # (auto) 0.4 10 ^3/uL (0.4-5.4); Lymphocytes % (auto) 3.4 % (10.0-50.0); Mean Corpuscular Hemoglobin 27.8 pg (28.0-32.0); Mean Corpuscular Hgb Conc. 33.5 g/dL (32.0-36.0); Monocytes # (auto) 1.1 10 ^3/uL (0-1.3); Monocytes % (auto) 8.7 % (0.0-12.0); Neutrophils # (auto) 10.7 10 ^3/uL (1.6-8.6); Neutrophils % (auto) 87.8 % (37.0-80.0); Nucleated Red Blood Cells % 0.1 %; Platelet Count (auto) 352 10^3/uL (140-450); Red Blood Cells 4.93 10^6/uL (4.5-5.90); Red Cell Distribution Width 15.8 % (11.8-14.3); White Blood Cell 12.2 10^3/uL (4.4-10.8)
[2021-03-24 07:15] LABS: Albumin 2.3 g/dL (3.4-5.0); Calcium 7.4 mg/dL (8.5-10.1); Magnesium 2.6 mg/dL (1.6-2.6); Potassium 4.8 mmol/L (3.5-5.1)
[2021-03-24 07:17] LABS: Lactic Acid w/Reflex 2.7 mmol/L (0.4-2.0)
[2021-03-24 07:18] LABS: BUN/Creatinine Ratio 14.6; Bilirubin, Total 1.9 mg/dL (0.2-1.0); Total Protein 6.5 g/dL (6.4-8.2)
[2021-03-24 07:36] LABS: INR 1.03 (0.9-1.15)
[2021-03-24] MEDS: ATRACURIUM BESYLATE 1,000 MG in D5W 5% 150 ML IV SCH (07:56)
[2021-03-24] MEDS: PANTOPRAZOLE 40 MG/10 ML VIAL INJ IV SCH (09:35)
[2021-03-24] MEDS: ZINC SULFATE 220mg CAP or TAB PO SCH (09:35)
[2021-03-24] MEDS: CHOLECALCIFEROL (VITD3) 2,000 UNIT CAP/TAB PO SCH (09:35)
[2021-03-24] MEDS: APIXABAN 5 MG TAB PO SCH ×2 (09:35→23:40)
[2021-03-24] MEDS: ASCORBIC ACID 1,000 MG TAB PO SCH (09:35)
[2021-03-24] MEDS: DexAMETHasone SOD PHOS 10MG/1ML VIAL INJ IV SCH (09:36)
[2021-03-24] MEDS: FUROSEMIDE 40 MG/4 ML VIAL IV SCH (09:36)
[2021-03-24] MEDS ORDERED: TPN PER PHARMACY 0 ML IV SCH (10:45)
[2021-03-24] MEDS ORDERED: ROCURONIUM 10MG/ML 10ML VIAL IV PRN (11:30)
[2021-03-24 14:25] LABS: Urine Bacteria FEW /hpf (None Seen); Urine Blood Negative /uL (Negative); Urine Hyaline Cast FEW /lpf (0 - 2); Urine WBC 11 /hpf (0 - 3)
[2021-03-24 14:32] LABS: Protein, Urine 23.9 mg/dL (0.0-11.9)
[2021-03-24] MEDS: REMDESIVIR 100mg 100 MG in SODIUM CHL 0.9% 230 ML IV SCH (15:09)
[2021-03-24] MEDS: fentaNYL Drip 2500mCg/250mlNS 250 ML IV SCH (20:00)
[2021-03-24] MEDS ORDERED: TPN PER PHARMACY IV NR ×8 (20:00)
[2021-03-24] MEDS: ACCU-CHEK COMFORT CURVE STRIP VI SCH (23:40)
[2021-03-24] MEDS: InsuLIN REG 1unit/0.01ml Soln (100units/ml) SC SCH (23:42)
[2021-03-25] VITALS (94 sets, daily range): BP systolic 95–132; BP diastolic 51–92
[2021-03-25] MEDS ORDERED: DEXTROSE (50%) 50ML SYRG IV SCH
[2021-03-25] MEDS: PROPOFOL 100 ML IV SCH ×7 (01:20→22:46)
[2021-03-25] MEDS: MEROPENEM 1GM IVPB 100 ML IV SCH ×3 (02:12→17:19)
[2021-03-25 04:13] LABS: Basophils # (auto) 0 10 ^3/uL (0-0.2); Basophils % (auto) 0.1 % (0.0-2.0); Eosinophils # (auto) 0 10 ^3/uL (0-0.8); Hematocrit 40.7 % (41.0-53.0); Hemoglobin 13.5 g/dL (13.5-17.5); Lymphocytes # (auto) 0.7 10 ^3/uL (0.4-5.4); Lymphocytes % (auto) 5.3 % (10.0-50.0); Mean Corpuscular Hgb Conc. 33.3 g/dL (32.0-36.0); Mean Corpuscular Volume 84.2 fL (80.0-100.0); Monocytes # (auto) 0.8 10 ^3/uL (0-1.3); Monocytes % (auto) 5.9 % (0.0-12.0); Neutrophils % (auto) 88.7 % (37.0-80.0); Nucleated Red Blood Cells % 0.1 %; Platelet Count (auto) 375 10^3/uL (140-450); Red Blood Cells 4.84 10^6/uL (4.5-5.90); Red Cell Distribution Width 16.1 % (11.8-14.3); White Blood Cell 13.5 10^3/uL (4.4-10.8)
[2021-03-25 04:37] LABS: Albumin 2.3 g/dL (3.4-5.0); Calcium 6.9 mg/dL (8.5-10.1); Magnesium 2.5 mg/dL (1.6-2.6); Potassium 5.4 mmol/L (3.5-5.1)
[2021-03-25 04:39] LABS: Lactic Acid w/Reflex 2.7 mmol/L (0.4-2.0)
[2021-03-25 04:46] LABS: BUN/Creatinine Ratio 19.8; CRP High Sensitivity 5.69 mg/dL (< 0.3); Phosphorus 3.5 mg/dL (2.5-4.90); Pre Albumin 14.6 mg/dL (20.0-40.0); Total Protein 6.6 g/dL (6.4-8.2)
[2021-03-25] MEDS: ACCU-CHEK COMFORT CURVE STRIP VI SCH (06:07)
[2021-03-25] MEDS: InsuLIN REG 1unit/0.01ml Soln (100units/ml) SC SCH ×2 (06:08→17:50)
[2021-03-25] MEDS: SODIUM CHLOR 0.9% PF (SALINE LOCK) 10ML VIAL/SYR IV SCH ×3 (06:11→21:54)
[2021-03-25] MEDS: AMIODARONE 450mg/250ml AE 250 ML IV SCH ×2 (06:12→06:30)
[2021-03-25] MEDS: MIDAZOLAM DRIP 50 mg/50mL 50 ML IV SCH ×2 (06:40→21:22)
[2021-03-25] MEDS: DexAMETHasone SOD PHOS 10MG/1ML VIAL INJ IV SCH (08:38)
[2021-03-25] MEDS: FUROSEMIDE 40 MG/4 ML VIAL IV SCH (08:39)
[2021-03-25] MEDS: ZINC SULFATE 220mg CAP or TAB PO SCH (08:39)
[2021-03-25] MEDS: APIXABAN 5 MG TAB PO SCH ×2 (08:39→21:54)
[2021-03-25] MEDS: PANTOPRAZOLE 40 MG/10 ML VIAL INJ IV SCH (08:39)
[2021-03-25] MEDS: CHOLECALCIFEROL (VITD3) 2,000 UNIT CAP/TAB PO SCH (08:40)
[2021-03-25] MEDS: ASCORBIC ACID 1,000 MG TAB PO SCH (08:40)
[2021-03-25] MEDS ORDERED: CALCIUM GLUC 1,000mg/50ml-NS 50 ML IV ONE (09:00)
[2021-03-25] MEDS: BUDESONIDE (INHALATION) 0.5 MG/2 ML NEB NEB SCH ×2 (09:33→18:33)
[2021-03-25] MEDS: ALBUTEROL SULF 2.5 MG/0.5ML(0.5%) NEB SOLN NEB SCH ×3 (09:33→18:33)
[2021-03-25] MEDS: IPRATROPIUM BROM 0.5 MG/2.5ML INH SOL NEB SCH ×3 (09:34→18:33)
[2021-03-25] MEDS: AMIODARONE HCL 200 MG TAB PO SCH ×2 (10:00→22:00)
[2021-03-25] MEDS ORDERED: SODIUM ZIRCONIUM CYCL 10 GM PAK PO ONE (11:30)
[2021-03-25] MEDS ORDERED: FUROSEMIDE 40 MG/4 ML VIAL IV ONE (13:30)
[2021-03-25] MEDS: REMDESIVIR 100mg 100 MG in SODIUM CHL 0.9% 230 ML IV SCH (15:48)
[2021-03-25] MEDS ORDERED: TPN PER PHARMACY IV NR ×9 (20:00)
[2021-03-25] MEDS: NOREPINEPHRINE 8 MG/250ML KIT 250 ML IV SCH (21:22)
[2021-03-25] MEDS: fentaNYL Drip 2500mCg/250mlNS 250 ML IV SCH (22:47)
[2021-03-26] VITALS (100 sets, daily range): BP systolic 85–128; BP diastolic 38–86
[2021-03-26] MEDS: InsuLIN REG 1unit/0.01ml Soln (100units/ml) SC SCH ×4 (00:01→17:13)
[2021-03-26] MEDS: MEROPENEM 1GM IVPB 100 ML IV SCH ×3 (01:58→16:03)
[2021-03-26] MEDS: PROPOFOL 100 ML IV SCH ×7 (01:59→18:24)
[2021-03-26] MEDS: SODIUM CHLOR 0.9% PF (SALINE LOCK) 10ML VIAL/SYR IV SCH ×3 (05:29→21:28)
[2021-03-26 05:38] LABS: Potassium 4.3 mmol/L (3.5-5.1)
[2021-03-26 05:41] LABS: BUN/Creatinine Ratio 31.6
[2021-03-26] MEDS ORDERED: Glucerna 1.2 Cal 1Liter BOTTLE GT SCH (06:00)
[2021-03-26] MEDS: IPRATROPIUM BROM 0.5 MG/2.5ML INH SOL NEB SCH ×3 (06:24→22:39)
[2021-03-26] MEDS: BUDESONIDE (INHALATION) 0.5 MG/2 ML NEB NEB SCH ×2 (06:24→22:39)
[2021-03-26] MEDS: ALBUTEROL SULF 2.5 MG/0.5ML(0.5%) NEB SOLN NEB SCH ×3 (06:24→22:39)
[2021-03-26] MEDS: MIDAZOLAM DRIP 50 mg/50mL 50 ML IV SCH ×4 (06:33→22:23)
[2021-03-26] MEDS: DexAMETHasone SOD PHOS 10MG/1ML VIAL INJ IV SCH (08:12)
[2021-03-26] MEDS: PANTOPRAZOLE 40 MG/10 ML VIAL INJ IV SCH (08:12)
[2021-03-26] MEDS: FUROSEMIDE 40 MG/4 ML VIAL IV SCH (08:12)
[2021-03-26] MEDS: ZINC SULFATE 220mg CAP or TAB PO SCH (08:12)
[2021-03-26] MEDS: APIXABAN 5 MG TAB PO SCH ×2 (08:13→21:28)
[2021-03-26] MEDS: CHOLECALCIFEROL (VITD3) 2,000 UNIT CAP/TAB PO SCH (08:13)
[2021-03-26] MEDS: AMIODARONE HCL 200 MG TAB PO SCH ×2 (08:13→21:28)
[2021-03-26] MEDS: ASCORBIC ACID 1,000 MG TAB PO SCH (08:13)
[2021-03-26] MEDS: fentaNYL Drip 2500mCg/250mlNS 250 ML IV SCH ×2 (12:00→22:25)
[2021-03-26] MEDS: METOCLOPRAMIDE HCL 5MG/ml INJ 2ml VIAL IV SCH (17:01)
[2021-03-26] MEDS: DexAMETHasone SOD PHOS 4 MG/1ML SDV INJ IV SCH (21:27)
[2021-03-26] MEDS: INSULIN LANTUS (GLARGINE) 1 /0.01ml (100units/ml) SC SCH (21:29)
[2021-03-27] VITALS (106 sets, daily range): BP systolic 94–146; BP diastolic 44–94
[2021-03-27] MEDS: METOCLOPRAMIDE HCL 5MG/ml INJ 2ml VIAL IV SCH ×4 (00:13→18:00)
[2021-03-27] MEDS: MEROPENEM 1GM IVPB 100 ML IV SCH ×3 (02:55→18:00)
[2021-03-27 04:16] LABS: Hematocrit 40.6 % (41.0-53.0); Hemoglobin 13.8 g/dL (13.5-17.5); Mean Corpuscular Hemoglobin 28.4 pg (28.0-32.0); Mean Corpuscular Hgb Conc. 34.1 g/dL (32.0-36.0); Mean Corpuscular Volume 83.2 fL (80.0-100.0); Platelet Count (auto) 368 10^3/uL (140-450); Red Blood Cells 4.88 10^6/uL (4.5-5.90); Red Cell Distribution Width 15.6 % (11.8-14.3); White Blood Cell 9.1 10^3/uL (4.4-10.8)
[2021-03-27 04:34] LABS: Calcium 7.8 mg/dL (8.5-10.1); Potassium 5.4 mmol/L (3.5-5.1)
[2021-03-27 04:35] LABS: Basophils % (manual) 0 (0.0-2.0); Blast Cells 0; Eosinophils % (manual) 0 (0-7); Promyelocytes % 0; Reactive Lymphocytes 0
[2021-03-27 04:36] LABS: BUN/Creatinine Ratio 39.2
[2021-03-27 05:22] LABS: Band Neutrophils % (manual) 6; Lymphocytes % (manual) 9 (10.0-50.0); Metamyelocytes % 1; Monocytes % (manual) 3 (0-12); Myelocytes % 1
[2021-03-27] MEDS: SODIUM CHLOR 0.9% PF (SALINE LOCK) 10ML VIAL/SYR IV SCH ×3 (06:00→22:09)
[2021-03-27] MEDS: InsuLIN REG 1unit/0.01ml Soln (100units/ml) SC SCH ×4 (06:02→18:30)
[2021-03-27] MEDS: NOREPINEPHRINE 8 MG/250ML KIT 250 ML IV SCH (06:13)
[2021-03-27] MEDS: MIDAZOLAM DRIP 50 mg/50mL 50 ML IV SCH ×2 (06:14→08:55)
[2021-03-27] MEDS: PROPOFOL 100 ML IV SCH (06:14)
[2021-03-27] MEDS: IPRATROPIUM BROM 0.5 MG/2.5ML INH SOL NEB SCH ×3 (06:39→18:31)
[2021-03-27] MEDS: BUDESONIDE (INHALATION) 0.5 MG/2 ML NEB NEB SCH ×2 (06:40→18:31)
[2021-03-27] MEDS: ALBUTEROL SULF 2.5 MG/0.5ML(0.5%) NEB SOLN NEB SCH ×3 (06:40→18:31)
[2021-03-27] MEDS: DexAMETHasone SOD PHOS 4 MG/1ML SDV INJ IV SCH ×2 (10:15→22:09)
[2021-03-27] MEDS: AMIODARONE HCL 200 MG TAB PO SCH ×2 (10:16→22:10)
[2021-03-27] MEDS: CHOLECALCIFEROL (VITD3) 2,000 UNIT CAP/TAB PO SCH (10:16)
[2021-03-27] MEDS: APIXABAN 5 MG TAB PO SCH ×2 (10:16→22:10)
[2021-03-27] MEDS: PANTOPRAZOLE 40 MG/10 ML VIAL INJ IV SCH (10:16)
[2021-03-27] MEDS: FUROSEMIDE 40 MG/4 ML VIAL IV SCH (10:16)
[2021-03-27] MEDS: ZINC SULFATE 220mg CAP or TAB PO SCH (10:16)
[2021-03-27] MEDS: ASCORBIC ACID 1,000 MG TAB PO SCH (10:17)
[2021-03-27] MEDS: fentaNYL Drip 2500mCg/250mlNS 250 ML IV SCH (12:00)
[2021-03-27] MEDS: INSULIN LANTUS (GLARGINE) 1 /0.01ml (100units/ml) SC SCH (22:13)
[2021-03-28] VITALS (91 sets, daily range): BP systolic 83–131; BP diastolic 44–86
[2021-03-28] MEDS: InsuLIN REG 1unit/0.01ml Soln (100units/ml) SC SCH ×4 (00:30→18:38)
[2021-03-28] MEDS: MEROPENEM 1GM IVPB 100 ML IV SCH ×3 (02:00→18:06)
[2021-03-28] MEDS: fentaNYL Drip 2500mCg/250mlNS 250 ML IV SCH ×2 (03:02→12:54)
[2021-03-28 03:59] LABS: Basophils # (auto) 0 10 ^3/uL (0-0.2); Basophils % (auto) 0.2 % (0.0-2.0); Eosinophils # (auto) 0 10 ^3/uL (0-0.8); Eosinophils % (auto) 0.1 % (0.0-7.0); Hemoglobin 13.4 g/dL (13.5-17.5); Lymphocytes # (auto) 0.9 10 ^3/uL (0.4-5.4); Mean Corpuscular Hemoglobin 28.7 pg (28.0-32.0); Mean Corpuscular Hgb Conc. 34.4 g/dL (32.0-36.0); Mean Corpuscular Volume 83.5 fL (80.0-100.0); Monocytes # (auto) 0.5 10 ^3/uL (0-1.3); Monocytes % (auto) 6.5 % (0.0-12.0); Neutrophils # (auto) 5.9 10 ^3/uL (1.6-8.6); Neutrophils % (auto) 81.2 % (37.0-80.0); Nucleated Red Blood Cells % 0.1 %; Platelet Count (auto) 408 10^3/uL (140-450); Red Blood Cells 4.68 10^6/uL (4.5-5.90); Red Cell Distribution Width 15.5 % (11.8-14.3); White Blood Cell 7.3 10^3/uL (4.4-10.8)
[2021-03-28 04:11] LABS: Calcium 8.1 mg/dL (8.5-10.1); Potassium 4.6 mmol/L (3.5-5.1)
[2021-03-28 04:13] LABS: BUN/Creatinine Ratio 52.8
[2021-03-28] MEDS: METOCLOPRAMIDE HCL 5MG/ml INJ 2ml VIAL IV SCH ×4 (04:54→18:06)
[2021-03-28] MEDS: SODIUM CHLOR 0.9% PF (SALINE LOCK) 10ML VIAL/SYR IV SCH ×3 (04:54→21:47)
[2021-03-28] MEDS: ALBUTEROL SULF 2.5 MG/0.5ML(0.5%) NEB SOLN NEB SCH ×3 (06:34→18:37)
[2021-03-28] MEDS: PROPOFOL 100 ML IV SCH ×5 (06:34→20:00)
[2021-03-28] MEDS: BUDESONIDE (INHALATION) 0.5 MG/2 ML NEB NEB SCH ×2 (06:34→18:37)
[2021-03-28] MEDS: IPRATROPIUM BROM 0.5 MG/2.5ML INH SOL NEB SCH ×3 (06:34→18:37)
[2021-03-28] MEDS: MIDAZOLAM DRIP 50 mg/50mL 50 ML IV SCH ×4 (06:36→21:20)
[2021-03-28] MEDS: DexAMETHasone SOD PHOS 4 MG/1ML SDV INJ IV SCH ×2 (09:47→21:47)
[2021-03-28] MEDS: FUROSEMIDE 40 MG/4 ML VIAL IV SCH (09:47)
[2021-03-28] MEDS: PANTOPRAZOLE 40 MG/10 ML VIAL INJ IV SCH (09:47)
[2021-03-28] MEDS: ZINC SULFATE 220mg CAP or TAB PO SCH (09:52)
[2021-03-28] MEDS: AMIODARONE HCL 200 MG TAB PO SCH ×2 (09:52→21:48)
[2021-03-28] MEDS: APIXABAN 5 MG TAB PO SCH ×2 (09:53→21:48)
[2021-03-28] MEDS: CHOLECALCIFEROL (VITD3) 2,000 UNIT CAP/TAB PO SCH (09:53)
[2021-03-28] MEDS: ASCORBIC ACID 1,000 MG TAB PO SCH (09:53)
[2021-03-28] MEDS: NOREPINEPHRINE 8 MG/250ML KIT 250 ML IV SCH (10:30)
[2021-03-28] MEDS: INSULIN LANTUS (GLARGINE) 1 /0.01ml (100units/ml) SC SCH (22:38)
[2021-03-29] VITALS (92 sets, daily range): BP systolic 86–126; BP diastolic 48–88
[2021-03-29] MEDS: InsuLIN REG 1unit/0.01ml Soln (100units/ml) SC SCH ×4 (00:58→18:07)
[2021-03-29] MEDS: MIDAZOLAM DRIP 50 mg/50mL 50 ML IV SCH ×4 (01:24→22:50)
[2021-03-29] MEDS: fentaNYL Drip 2500mCg/250mlNS 250 ML IV SCH ×2 (01:25→11:49)
[2021-03-29] MEDS: MEROPENEM 1GM IVPB 100 ML IV SCH ×3 (02:11→18:07)
[2021-03-29 03:51] LABS: Basophils # (auto) 0.1 10 ^3/uL (0-0.2); Eosinophils # (auto) 0 10 ^3/uL (0-0.8); Hematocrit 40.9 % (41.0-53.0); Hemoglobin 13.9 g/dL (13.5-17.5); Lymphocytes # (auto) 0.7 10 ^3/uL (0.4-5.4); Lymphocytes % (auto) 7.4 % (10.0-50.0); Mean Corpuscular Hemoglobin 28.5 pg (28.0-32.0); Mean Corpuscular Hgb Conc. 34.1 g/dL (32.0-36.0); Mean Corpuscular Volume 83.5 fL (80.0-100.0); Monocytes # (auto) 0.5 10 ^3/uL (0-1.3); Neutrophils # (auto) 8.3 10 ^3/uL (1.6-8.6); Neutrophils % (auto) 86.6 % (37.0-80.0); Nucleated Red Blood Cells % 0.1 %; Platelet Count (auto) 440 10^3/uL (140-450); Red Cell Distribution Width 15.6 % (11.8-14.3); White Blood Cell 9.6 10^3/uL (4.4-10.8)
[2021-03-29 04:11] LABS: INR 1.13 (0.9-1.15); Partial Thromboplastin Time 27.6 sec (23.0-31.2)
[2021-03-29 04:28] LABS: Anion Gap 4 (5-15); Blood Urea Nitrogen 45 mg/dL (7-18); Carbon Dioxide 33 mmol/L (21-32); Chloride 104 mmol/L (98-107); Glucose 200 mg/dL (74-106); Magnesium 2.3 mg/dL (1.6-2.6); Potassium 5.2 mmol/L (3.5-5.1); Sodium 141 mmol/L (136-145)
[2021-03-29 04:35] LABS: Alanine Aminotransferase 28 U/L (16-61); Alkaline Phosphatase 65 U/L (45-117); Aspartate Aminotransferase 24 U/L (15-37); BUN/Creatinine Ratio 57.7; GFR African American 141 mL/min; GFR Non-African American 117 mL/min; Phosphorus 3.3 mg/dL (2.5-4.90); Total Protein 6.8 g/dL (6.4-8.2)
[2021-03-29] MEDS: SODIUM CHLOR 0.9% PF (SALINE LOCK) 10ML VIAL/SYR IV SCH ×3 (05:42→22:00)
[2021-03-29] MEDS: METOCLOPRAMIDE HCL 5MG/ml INJ 2ml VIAL IV SCH ×4 (05:42→18:07)
[2021-03-29] MEDS: PROPOFOL 100 ML IV SCH ×3 (05:44→20:47)
[2021-03-29] MEDS: IPRATROPIUM BROM 0.5 MG/2.5ML INH SOL NEB SCH ×3 (06:28→18:46)
[2021-03-29] MEDS: ALBUTEROL SULF 2.5 MG/0.5ML(0.5%) NEB SOLN NEB SCH ×3 (06:28→18:46)
[2021-03-29] MEDS: BUDESONIDE (INHALATION) 0.5 MG/2 ML NEB NEB SCH ×2 (06:28→18:46)
[2021-03-29] MEDS: FUROSEMIDE 40 MG/4 ML VIAL IV SCH (09:04)
[2021-03-29] MEDS: PANTOPRAZOLE 40 MG/10 ML VIAL INJ IV SCH (09:05)
[2021-03-29] MEDS: ZINC SULFATE 220mg CAP or TAB PO SCH (09:05)
[2021-03-29] MEDS: DexAMETHasone SOD PHOS 4 MG/1ML SDV INJ IV SCH ×2 (09:05→22:00)
[2021-03-29] MEDS: ASCORBIC ACID 1,000 MG TAB PO SCH (09:06)
[2021-03-29] MEDS: AMIODARONE HCL 200 MG TAB PO SCH ×2 (09:06→22:00)
[2021-03-29] MEDS: CHOLECALCIFEROL (VITD3) 2,000 UNIT CAP/TAB PO SCH (09:06)
[2021-03-29] MEDS: APIXABAN 5 MG TAB PO SCH ×2 (09:06→22:00)
[2021-03-29] MEDS ORDERED: InsuLIN REG 1unit/0.01ml Soln (100units/ml) IV ONE (09:45)
[2021-03-29] MEDS ORDERED: DEXTROSE (50%) 50ML SYRG IV ONE (09:45)
[2021-03-29] MEDS ORDERED: ALBUTEROL SULF 2.5 MG/0.5ML(0.5%) NEB SOLN NEB ONE (09:45)
[2021-03-29] MEDS: NOREPINEPHRINE 8 MG/250ML KIT 250 ML IV SCH (10:30)
[2021-03-29] MEDS ORDERED: DIGOXIN (250MCG/ML) 2 ML AMPULE IV ONE ×2 (11:00→19:15)
[2021-03-29] MEDS: SODIUM ZIRCONIUM CYCL 10 GM PAK PO SCH ×3 (12:28→22:00)
[2021-03-29] MEDS ORDERED: acetaZOLAMIDE SODIUM 500 MG VL IV SCH (22:00)
[2021-03-29] MEDS: INSULIN LANTUS (GLARGINE) 1 /0.01ml (100units/ml) SC SCH (22:00)
[2021-03-30] VITALS (55 sets, daily range): BP systolic 86–124; BP diastolic 48–77
[2021-03-30] MEDS: METOCLOPRAMIDE HCL 5MG/ml INJ 2ml VIAL IV SCH ×4 (00:05→17:28)
[2021-03-30] MEDS: InsuLIN REG 1unit/0.01ml Soln (100units/ml) SC SCH ×5 (00:06→18:00)
[2021-03-30] MEDS: fentaNYL Drip 2500mCg/250mlNS 250 ML IV SCH (00:07)
[2021-03-30] MEDS: PROPOFOL 100 ML IV SCH ×2 (00:08→05:00)
[2021-03-30] MEDS: MIDAZOLAM DRIP 50 mg/50mL 50 ML IV SCH ×4 (02:17→21:00)
[2021-03-30] MEDS: MEROPENEM 1GM IVPB 100 ML IV SCH ×3 (02:17→17:28)
[2021-03-30 03:33] LABS: Basophils # (auto) 0 10 ^3/uL (0-0.2); Basophils % (auto) 0.4 % (0.0-2.0); Eosinophils # (auto) 0 10 ^3/uL (0-0.8); Eosinophils % (auto) 0.1 % (0.0-7.0); Hematocrit 40.6 % (41.0-53.0); Hemoglobin 13.4 g/dL (13.5-17.5); Lymphocytes # (auto) 0.6 10 ^3/uL (0.4-5.4); Mean Corpuscular Hemoglobin 27.8 pg (28.0-32.0); Mean Corpuscular Volume 84.3 fL (80.0-100.0); Monocytes # (auto) 0.6 10 ^3/uL (0-1.3); Monocytes % (auto) 5.8 % (0.0-12.0); Neutrophils # (auto) 8.3 10 ^3/uL (1.6-8.6); Neutrophils % (auto) 87.7 % (37.0-80.0); Nucleated Red Blood Cells % 0.1 %; Platelet Count (auto) 402 10^3/uL (140-450); Red Blood Cells 4.82 10^6/uL (4.5-5.90); Red Cell Distribution Width 15.8 % (11.8-14.3); White Blood Cell 9.5 10^3/uL (4.4-10.8)
[2021-03-30 03:51] LABS: BUN/Creatinine Ratio 62.5; Calcium 8.1 mg/dL (8.5-10.1); Potassium 4.6 mmol/L (3.5-5.1)
[2021-03-30] MEDS: SODIUM CHLOR 0.9% PF (SALINE LOCK) 10ML VIAL/SYR IV SCH ×3 (06:03→22:20)
[2021-03-30] MEDS: IPRATROPIUM BROM 0.5 MG/2.5ML INH SOL NEB SCH ×3 (07:07→22:25)
[2021-03-30] MEDS: ALBUTEROL SULF 2.5 MG/0.5ML(0.5%) NEB SOLN NEB SCH (07:08)
[2021-03-30] MEDS: BUDESONIDE (INHALATION) 0.5 MG/2 ML NEB NEB SCH ×2 (07:08→22:25)
[2021-03-30] MEDS: ZINC SULFATE 220mg CAP or TAB PO SCH (09:44)
[2021-03-30] MEDS: PANTOPRAZOLE 40 MG/10 ML VIAL INJ IV SCH (09:44)
[2021-03-30] MEDS: APIXABAN 5 MG TAB PO SCH ×2 (09:44→22:21)
[2021-03-30] MEDS: DexAMETHasone SOD PHOS 4 MG/1ML SDV INJ IV SCH ×2 (09:44→22:19)
[2021-03-30] MEDS: CHOLECALCIFEROL (VITD3) 2,000 UNIT CAP/TAB PO SCH (09:44)
[2021-03-30] MEDS: ASCORBIC ACID 1,000 MG TAB PO SCH (09:45)
[2021-03-30] MEDS: FUROSEMIDE 40 MG/4 ML VIAL IV SCH (09:45)
[2021-03-30] MEDS: AMIODARONE HCL 200 MG TAB PO SCH ×2 (10:00→22:00)
[2021-03-30] MEDS: NOREPINEPHRINE 8 MG/250ML KIT 250 ML IV SCH (10:30)
[2021-03-30] MEDS: LEVALBUTEROL HCL 1.25 MG/3 ML NEB NEB SCH ×2 (15:02→22:25)
[2021-03-30] MEDS ORDERED: Nepro With Carb Steady 1 Liter Bottle GT SCH (18:45)
[2021-03-30] MEDS: INSULIN LANTUS (GLARGINE) 1 /0.01ml (100units/ml) SC SCH (22:26)
[2021-03-31] VITALS (53 sets, daily range): BP systolic 93–121; BP diastolic 39–78
[2021-03-31] MEDS: METOCLOPRAMIDE HCL 5MG/ml INJ 2ml VIAL IV SCH ×4 (00:11→18:40)
[2021-03-31] MEDS: InsuLIN REG 1unit/0.01ml Soln (100units/ml) SC SCH ×5 (00:12→23:31)
[2021-03-31] MEDS: MEROPENEM 1GM IVPB 100 ML IV SCH ×3 (01:00→18:39)
[2021-03-31] MEDS: fentaNYL Drip 2500mCg/250mlNS 250 ML IV SCH ×2 (01:02→14:54)
[2021-03-31] MEDS: MIDAZOLAM DRIP 50 mg/50mL 50 ML IV SCH ×3 (01:55→14:54)
[2021-03-31] MEDS: SODIUM CHLOR 0.9% PF (SALINE LOCK) 10ML VIAL/SYR IV SCH ×3 (05:50→22:29)
[2021-03-31] MEDS: IPRATROPIUM BROM 0.5 MG/2.5ML INH SOL NEB SCH ×4 (06:57→18:57)
[2021-03-31] MEDS: BUDESONIDE (INHALATION) 0.5 MG/2 ML NEB NEB SCH ×2 (06:57→18:58)
[2021-03-31] MEDS: LEVALBUTEROL HCL 1.25 MG/3 ML NEB NEB SCH ×4 (06:57→18:58)
[2021-03-31] MEDS: NOREPINEPHRINE 8 MG/250ML KIT 250 ML IV SCH (08:30)
[2021-03-31] MEDS: DexAMETHasone SOD PHOS 4 MG/1ML SDV INJ IV SCH ×2 (09:53→22:29)
[2021-03-31] MEDS: FUROSEMIDE 40 MG/4 ML VIAL IV SCH (09:54)
[2021-03-31] MEDS: ZINC SULFATE 220mg CAP or TAB PO SCH (09:54)
[2021-03-31] MEDS: PANTOPRAZOLE 40 MG/10 ML VIAL INJ IV SCH (09:54)
[2021-03-31] MEDS: ASCORBIC ACID 1,000 MG TAB PO SCH (09:55)
[2021-03-31] MEDS: AMIODARONE HCL 200 MG TAB PO SCH ×2 (09:55→22:29)
[2021-03-31] MEDS: CHOLECALCIFEROL (VITD3) 2,000 UNIT CAP/TAB PO SCH (09:55)
[2021-03-31] MEDS: APIXABAN 5 MG TAB PO SCH ×2 (09:55→22:30)
[2021-03-31 10:07] LABS: Basophils # (auto) 0 10 ^3/uL (0-0.2); Basophils % (auto) 0.1 % (0.0-2.0); Eosinophils # (auto) 0.1 10 ^3/uL (0-0.8); Eosinophils % (auto) 1.1 % (0.0-7.0); Hematocrit 41.5 % (41.0-53.0); Hemoglobin 13.7 g/dL (13.5-17.5); Lymphocytes # (auto) 1.1 10 ^3/uL (0.4-5.4); Lymphocytes % (auto) 9.2 % (10.0-50.0); Mean Corpuscular Volume 84.6 fL (80.0-100.0); Monocytes # (auto) 0.9 10 ^3/uL (0-1.3); Neutrophils # (auto) 9.5 10 ^3/uL (1.6-8.6); Neutrophils % (auto) 81.6 % (37.0-80.0); Nucleated Red Blood Cells % 0.1 %; Platelet Count (auto) 311 10^3/uL (140-450); Red Blood Cells 4.91 10^6/uL (4.5-5.90); Red Cell Distribution Width 15.8 % (11.8-14.3); White Blood Cell 11.7 10^3/uL (4.4-10.8)
[2021-03-31 10:08] LABS: BUN/Creatinine Ratio 72.7; Calcium 8.1 mg/dL (8.5-10.1); Potassium 4.8 mmol/L (3.5-5.1)
[2021-03-31] MEDS ORDERED: PROPOFOL 100 ML IV ONE (12:03)
[2021-03-31] MEDS: PROPOFOL 100 ML IV SCH (12:21)
[2021-03-31] MEDS: INSULIN LANTUS (GLARGINE) 1 /0.01ml (100units/ml) SC SCH (23:30)
[2021-04-01] VITALS (56 sets, daily range): BP systolic 84–138; BP diastolic 28–85
[2021-04-01] MEDS: IPRATROPIUM BROM 0.5 MG/2.5ML INH SOL NEB SCH ×4 (00:20→18:45)
[2021-04-01] MEDS: LEVALBUTEROL HCL 1.25 MG/3 ML NEB NEB SCH ×4 (00:20→18:45)
[2021-04-01] MEDS: MEROPENEM 1GM IVPB 100 ML IV SCH ×3 (03:06→18:55)
[2021-04-01] MEDS: BUDESONIDE (INHALATION) 0.5 MG/2 ML NEB NEB SCH ×2 (06:05→18:45)
[2021-04-01] MEDS ORDERED: DIGOXIN (250MCG/ML) 2 ML AMPULE ONE ×2 (06:07→06:43)
[2021-04-01] MEDS ORDERED: DIGOXIN (250MCG/ML) 2 ML AMPULE IV ONE ×2 (06:15→07:00)
[2021-04-01 06:20] LABS: Basophils # (auto) 0.1 10 ^3/uL (0-0.2); Basophils % (auto) 0.6 % (0.0-2.0); Eosinophils # (auto) 0 10 ^3/uL (0-0.8); Eosinophils % (auto) 0.1 % (0.0-7.0); Hematocrit 40.6 % (41.0-53.0); Hemoglobin 13.5 g/dL (13.5-17.5); Lymphocytes # (auto) 1.4 10 ^3/uL (0.4-5.4); Lymphocytes % (auto) 11.1 % (10.0-50.0); Mean Corpuscular Hemoglobin 28.1 pg (28.0-32.0); Mean Corpuscular Hgb Conc. 33.3 g/dL (32.0-36.0); Mean Corpuscular Volume 84.5 fL (80.0-100.0); Monocytes # (auto) 0.8 10 ^3/uL (0-1.3); Monocytes % (auto) 6.4 % (0.0-12.0); Neutrophils # (auto) 10.1 10 ^3/uL (1.6-8.6); Neutrophils % (auto) 81.8 % (37.0-80.0); Nucleated Red Blood Cells % 0.2 %; Platelet Count (auto) 322 10^3/uL (140-450); Red Cell Distribution Width 15.7 % (11.8-14.3); White Blood Cell 12.3 10^3/uL (4.4-10.8)
[2021-04-01] MEDS: METOCLOPRAMIDE HCL 5MG/ml INJ 2ml VIAL IV SCH ×4 (06:22→18:56)
[2021-04-01] MEDS: SODIUM CHLOR 0.9% PF (SALINE LOCK) 10ML VIAL/SYR IV SCH ×3 (06:22→22:43)
[2021-04-01] MEDS: InsuLIN REG 1unit/0.01ml Soln (100units/ml) SC SCH ×3 (06:23→18:00)
[2021-04-01 06:34] LABS: Calcium 7.9 mg/dL (8.5-10.1); Potassium 4.5 mmol/L (3.5-5.1)
[2021-04-01 06:41] LABS: Albumin 2.3 g/dL (3.4-5.0); BUN/Creatinine Ratio 70.1; Bilirubin, Total 1.3 mg/dL (0.2-1.0); Total Protein 6.7 g/dL (6.4-8.2)
[2021-04-01] MEDS: fentaNYL Drip 2500mCg/250mlNS 250 ML IV SCH ×2 (08:07→14:01)
[2021-04-01] MEDS: PROPOFOL 100 ML IV SCH ×7 (09:36→20:00)
[2021-04-01] MEDS: PANTOPRAZOLE 40 MG/10 ML VIAL INJ IV SCH (09:36)
[2021-04-01] MEDS: FUROSEMIDE 40 MG/4 ML VIAL IV SCH (09:36)
[2021-04-01] MEDS: CHOLECALCIFEROL (VITD3) 2,000 UNIT CAP/TAB PO SCH (09:37)
[2021-04-01] MEDS: ASCORBIC ACID 1,000 MG TAB PO SCH (09:38)
[2021-04-01] MEDS: APIXABAN 5 MG TAB PO SCH ×2 (09:40→22:44)
[2021-04-01] MEDS: DexAMETHasone SOD PHOS 4 MG/1ML SDV INJ IV SCH ×2 (09:40→22:42)
[2021-04-01] MEDS: ZINC SULFATE 220mg CAP or TAB PO SCH (09:40)
[2021-04-01] MEDS: NOREPINEPHRINE 8 MG/250ML KIT 250 ML IV SCH (10:30)
[2021-04-01] MEDS ORDERED: SODIUM PHOSPHATES 20 MEQ in SODIUM CHL 0.9% 100 ML IV ONE (10:45)
[2021-04-01] MEDS: MIDAZOLAM DRIP 50 mg/50mL 50 ML IV SCH ×3 (11:34→21:00)
[2021-04-01] MEDS: AMIODARONE HCL 200 MG TAB PO SCH ×2 (12:13→22:00)
[2021-04-01] MEDS ORDERED: SODIUM CHLORIDE 0.9% 500 ML IV ONE (15:45)
[2021-04-01] MEDS: INSULIN LANTUS (GLARGINE) 1 /0.01ml (100units/ml) SC SCH (22:00)
[2021-04-02] VITALS (58 sets, daily range): BP systolic 106–140; BP diastolic 44–90
[2021-04-02] MEDS: LEVALBUTEROL HCL 1.25 MG/3 ML NEB NEB SCH ×4 (00:30→19:02)
[2021-04-02] MEDS: IPRATROPIUM BROM 0.5 MG/2.5ML INH SOL NEB SCH ×4 (00:30→19:02)
[2021-04-02] MEDS: METOCLOPRAMIDE HCL 5MG/ml INJ 2ml VIAL IV SCH ×4 (00:39→17:22)
[2021-04-02] MEDS: INSULIN LANTUS (GLARGINE) 1 /0.01ml (100units/ml) SC SCH ×2 (00:40→22:10)
[2021-04-02] MEDS: MEROPENEM 1GM IVPB 100 ML IV SCH ×3 (04:05→17:22)
[2021-04-02] MEDS: PROPOFOL 100 ML IV SCH ×6 (04:09→20:44)
[2021-04-02] MEDS: MIDAZOLAM DRIP 50 mg/50mL 50 ML IV SCH ×3 (04:11→14:16)
[2021-04-02 04:19] LABS: Basophils # (auto) 0 10 ^3/uL (0-0.2); Basophils % (auto) 0.3 % (0.0-2.0); Eosinophils # (auto) 0 10 ^3/uL (0-0.8); Eosinophils % (auto) 0.2 % (0.0-7.0); Hematocrit 42.6 % (41.0-53.0); Hemoglobin 13.9 g/dL (13.5-17.5); Lymphocytes % (auto) 6.7 % (10.0-50.0); Mean Corpuscular Hemoglobin 27.3 pg (28.0-32.0); Mean Corpuscular Hgb Conc. 32.7 g/dL (32.0-36.0); Mean Corpuscular Volume 83.5 fL (80.0-100.0); Monocytes # (auto) 0.6 10 ^3/uL (0-1.3); Monocytes % (auto) 3.9 % (0.0-12.0); Neutrophils # (auto) 13.2 10 ^3/uL (1.6-8.6); Neutrophils % (auto) 88.9 % (37.0-80.0); Platelet Count (auto) 351 10^3/uL (140-450); Red Blood Cells 5.11 10^6/uL (4.5-5.90); Red Cell Distribution Width 15.8 % (11.8-14.3); White Blood Cell 14.9 10^3/uL (4.4-10.8)
[2021-04-02 04:51] LABS: BUN/Creatinine Ratio 61.7; Calcium 7.7 mg/dL (8.5-10.1); Phosphorus 2.4 mg/dL (2.5-4.90)
[2021-04-02] MEDS: SODIUM CHLOR 0.9% PF (SALINE LOCK) 10ML VIAL/SYR IV SCH ×3 (05:39→21:27)
[2021-04-02] MEDS: InsuLIN REG 1unit/0.01ml Soln (100units/ml) SC SCH ×4 (05:40→17:52)
[2021-04-02] MEDS: BUDESONIDE (INHALATION) 0.5 MG/2 ML NEB NEB SCH ×2 (06:18→19:02)
[2021-04-02] MEDS: DIGOXIN 0.125 MG TAB PO SCH (10:00)
[2021-04-02] MEDS: DexAMETHasone SOD PHOS 4 MG/1ML SDV INJ IV SCH ×2 (10:24→21:26)
[2021-04-02] MEDS: FUROSEMIDE 40 MG/4 ML VIAL IV SCH (10:24)
[2021-04-02] MEDS: PANTOPRAZOLE 40 MG/10 ML VIAL INJ IV SCH (10:24)
[2021-04-02] MEDS: AMIODARONE HCL 200 MG TAB PO SCH (10:25)
[2021-04-02] MEDS: ASCORBIC ACID 1,000 MG TAB PO SCH (10:25)
[2021-04-02] MEDS: ZINC SULFATE 220mg CAP or TAB PO SCH (10:25)
[2021-04-02] MEDS: CHOLECALCIFEROL (VITD3) 2,000 UNIT CAP/TAB PO SCH (10:25)
[2021-04-02] MEDS: APIXABAN 5 MG TAB PO SCH ×2 (10:26→21:27)
[2021-04-02] MEDS: NOREPINEPHRINE 8 MG/250ML KIT 250 ML IV SCH ×2 (10:30→15:38)
[2021-04-02] MEDS: fentaNYL Drip 2500mCg/250mlNS 250 ML IV SCH (11:14)
[2021-04-02] MEDS ORDERED: SODIUM PHOSPHATES 20 MEQ in SODIUM CHL 0.9% 100 ML IV ONE (12:00)
[2021-04-03] VITALS (85 sets, daily range): BP systolic 88–144; BP diastolic 45–96
[2021-04-03] MEDS: InsuLIN REG 1unit/0.01ml Soln (100units/ml) SC SCH ×4 (00:03→17:38)
[2021-04-03] MEDS: METOCLOPRAMIDE HCL 5MG/ml INJ 2ml VIAL IV SCH ×4 (00:05→17:10)
[2021-04-03] MEDS: IPRATROPIUM BROM 0.5 MG/2.5ML INH SOL NEB SCH ×4 (01:00→22:13)
[2021-04-03] MEDS: LEVALBUTEROL HCL 1.25 MG/3 ML NEB NEB SCH ×4 (01:00→22:13)
[2021-04-03] MEDS: MEROPENEM 1GM IVPB 100 ML IV SCH ×3 (02:11→17:10)
[2021-04-03 03:57] LABS: Basophils # (auto) 0.1 10 ^3/uL (0-0.2); Basophils % (auto) 0.4 % (0.0-2.0); Eosinophils # (auto) 0.1 10 ^3/uL (0-0.8); Hematocrit 44.1 % (41.0-53.0); Hemoglobin 14.6 g/dL (13.5-17.5); Lymphocytes # (auto) 0.8 10 ^3/uL (0.4-5.4); Lymphocytes % (auto) 5.7 % (10.0-50.0); Mean Corpuscular Hemoglobin 27.5 pg (28.0-32.0); Mean Corpuscular Hgb Conc. 33.1 g/dL (32.0-36.0); Mean Corpuscular Volume 83.3 fL (80.0-100.0); Monocytes # (auto) 0.4 10 ^3/uL (0-1.3); Monocytes % (auto) 2.7 % (0.0-12.0); Neutrophils # (auto) 12.5 10 ^3/uL (1.6-8.6); Neutrophils % (auto) 90.2 % (37.0-80.0); Nucleated Red Blood Cells % 0.1 %; Platelet Count (auto) 312 10^3/uL (140-450); Red Cell Distribution Width 15.4 % (11.8-14.3); White Blood Cell 13.9 10^3/uL (4.4-10.8)
[2021-04-03 05:08] LABS: Albumin 2.4 g/dL (3.4-5.0); Calcium 7.8 mg/dL (8.5-10.1); Potassium 4.3 mmol/L (3.5-5.1)
[2021-04-03 05:11] LABS: BUN/Creatinine Ratio 59.6; Bilirubin, Total 1.3 mg/dL (0.2-1.0); Total Protein 6.9 g/dL (6.4-8.2)
[2021-04-03] MEDS: SODIUM CHLOR 0.9% PF (SALINE LOCK) 10ML VIAL/SYR IV SCH ×3 (05:58→22:38)
[2021-04-03] MEDS: BUDESONIDE (INHALATION) 0.5 MG/2 ML NEB NEB SCH ×2 (06:32→22:13)
[2021-04-03] MEDS: ASCORBIC ACID 1,000 MG TAB PO SCH (10:00)
[2021-04-03] MEDS: DexAMETHasone SOD PHOS 4 MG/1ML SDV INJ IV SCH ×2 (10:00→22:37)
[2021-04-03] MEDS: ZINC SULFATE 220mg CAP or TAB PO SCH (10:00)
[2021-04-03] MEDS: APIXABAN 5 MG TAB PO SCH ×2 (10:00→22:38)
[2021-04-03] MEDS: CHOLECALCIFEROL (VITD3) 2,000 UNIT CAP/TAB PO SCH (10:00)
[2021-04-03] MEDS: FUROSEMIDE 40 MG/4 ML VIAL IV SCH (10:00)
[2021-04-03] MEDS: DIGOXIN 0.125 MG TAB PO SCH (10:00)
[2021-04-03] MEDS: PANTOPRAZOLE 40 MG/10 ML VIAL INJ IV SCH (10:00)
[2021-04-03] MEDS: AMIODARONE HCL 200 MG TAB PO SCH (10:00)
[2021-04-03] MEDS: PROPOFOL 100 ML IV SCH (21:00)
[2021-04-03] MEDS: INSULIN LANTUS (GLARGINE) 1 /0.01ml (100units/ml) SC SCH (22:00)
[2021-04-03] MEDS: MIDAZOLAM DRIP 50 mg/50mL 50 ML IV SCH (23:32)
[2021-04-04] VITALS (105 sets, daily range): BP systolic 87–124; BP diastolic 46–83
[2021-04-04] MEDS: METOCLOPRAMIDE HCL 5MG/ml INJ 2ml VIAL IV SCH ×4 (00:12→18:00)
[2021-04-04] MEDS: MEROPENEM 1GM IVPB 100 ML IV SCH ×3 (01:32→18:00)
[2021-04-04] MEDS: PROPOFOL 100 ML IV SCH ×3 (01:45→22:42)
[2021-04-04 04:44] LABS: Basophils # (auto) 0 10 ^3/uL (0-0.2); Basophils % (auto) 0.3 % (0.0-2.0); Eosinophils # (auto) 0 10 ^3/uL (0-0.8); Eosinophils % (auto) 0.1 % (0.0-7.0); Hematocrit 42.1 % (41.0-53.0); Hemoglobin 14.4 g/dL (13.5-17.5); Lymphocytes # (auto) 0.9 10 ^3/uL (0.4-5.4); Lymphocytes % (auto) 7.6 % (10.0-50.0); Mean Corpuscular Hemoglobin 28.4 pg (28.0-32.0); Mean Corpuscular Hgb Conc. 34.1 g/dL (32.0-36.0); Mean Corpuscular Volume 83.1 fL (80.0-100.0); Monocytes # (auto) 0.4 10 ^3/uL (0-1.3); Monocytes % (auto) 3.3 % (0.0-12.0); Neutrophils # (auto) 10.6 10 ^3/uL (1.6-8.6); Neutrophils % (auto) 88.7 % (37.0-80.0); Nucleated Red Blood Cells % 0.4 %; Platelet Count (auto) 242 10^3/uL (140-450); Red Blood Cells 5.07 10^6/uL (4.5-5.90); Red Cell Distribution Width 15.5 % (11.8-14.3); White Blood Cell 11.9 10^3/uL (4.4-10.8)
[2021-04-04 05:05] LABS: BUN/Creatinine Ratio 72.3; Magnesium 1.8 mg/dL (1.6-2.6)
[2021-04-04] MEDS: fentaNYL Drip 2500mCg/250mlNS 250 ML IV SCH ×2 (05:43→22:44)
[2021-04-04] MEDS: MIDAZOLAM DRIP 50 mg/50mL 50 ML IV SCH ×2 (05:44→22:43)
[2021-04-04] MEDS: InsuLIN REG 1unit/0.01ml Soln (100units/ml) SC SCH ×4 (06:00→18:00)
[2021-04-04] MEDS: SODIUM CHLOR 0.9% PF (SALINE LOCK) 10ML VIAL/SYR IV SCH ×3 (06:37→22:06)
[2021-04-04] MEDS: IPRATROPIUM BROM 0.5 MG/2.5ML INH SOL NEB SCH ×4 (07:11→18:38)
[2021-04-04] MEDS: LEVALBUTEROL HCL 1.25 MG/3 ML NEB NEB SCH ×4 (07:11→18:38)
[2021-04-04] MEDS: BUDESONIDE (INHALATION) 0.5 MG/2 ML NEB NEB SCH ×2 (07:11→18:38)
[2021-04-04] MEDS: DexAMETHasone SOD PHOS 4 MG/1ML SDV INJ IV SCH ×2 (10:00→22:05)
[2021-04-04] MEDS: APIXABAN 5 MG TAB PO SCH ×2 (10:00→22:05)
[2021-04-04] MEDS: CHOLECALCIFEROL (VITD3) 2,000 UNIT CAP/TAB PO SCH (10:00)
[2021-04-04] MEDS: FUROSEMIDE 40 MG/4 ML VIAL IV SCH (10:00)
[2021-04-04] MEDS: PANTOPRAZOLE 40 MG/10 ML VIAL INJ IV SCH (10:00)
[2021-04-04] MEDS: DIGOXIN 0.125 MG TAB PO SCH (10:00)
[2021-04-04] MEDS: ASCORBIC ACID 1,000 MG TAB PO SCH (10:00)
[2021-04-04] MEDS: ZINC SULFATE 220mg CAP or TAB PO SCH (10:00)
[2021-04-04] MEDS: AMIODARONE HCL 200 MG TAB PO SCH (10:00)
[2021-04-04] MEDS: NOREPINEPHRINE 8 MG/250ML KIT 250 ML IV SCH ×2 (10:30→22:43)
[2021-04-04] MEDS: INSULIN LANTUS (GLARGINE) 1 /0.01ml (100units/ml) SC SCH (22:00)
[2021-04-05] VITALS (95 sets, daily range): BP systolic 86–141; BP diastolic 52–91
[2021-04-05] MEDS: LEVALBUTEROL HCL 1.25 MG/3 ML NEB NEB SCH ×4 (00:10→18:38)
[2021-04-05] MEDS: IPRATROPIUM BROM 0.5 MG/2.5ML INH SOL NEB SCH ×4 (00:10→18:38)
[2021-04-05] MEDS: MIDAZOLAM DRIP 50 mg/50mL 50 ML IV SCH ×5 (00:54→21:20)
[2021-04-05] MEDS: PROPOFOL 100 ML IV SCH ×7 (00:54→19:30)
[2021-04-05] MEDS: METOCLOPRAMIDE HCL 5MG/ml INJ 2ml VIAL IV SCH ×4 (00:59→18:30)
[2021-04-05] MEDS: InsuLIN REG 1unit/0.01ml Soln (100units/ml) SC SCH ×4 (01:10→18:00)
[2021-04-05] MEDS: MEROPENEM 1GM IVPB 100 ML IV SCH ×2 (01:46→10:13)
[2021-04-05] MEDS: SODIUM CHLOR 0.9% PF (SALINE LOCK) 10ML VIAL/SYR IV SCH ×3 (06:34→21:19)
[2021-04-05] MEDS: FUROSEMIDE 40 MG/4 ML VIAL IV SCH (10:12)
[2021-04-05] MEDS: DexAMETHasone SOD PHOS 4 MG/1ML SDV INJ IV SCH (10:12)
[2021-04-05] MEDS: PANTOPRAZOLE 40 MG/10 ML VIAL INJ IV SCH (10:13)
[2021-04-05] MEDS: AMIODARONE HCL 200 MG TAB PO SCH (10:13)
[2021-04-05] MEDS: ZINC SULFATE 220mg CAP or TAB PO SCH (10:13)
[2021-04-05] MEDS: DIGOXIN 0.125 MG TAB PO SCH (10:14)
[2021-04-05] MEDS: CHOLECALCIFEROL (VITD3) 2,000 UNIT CAP/TAB PO SCH (10:14)
[2021-04-05] MEDS: APIXABAN 5 MG TAB PO SCH ×2 (10:14→21:19)
[2021-04-05] MEDS: ASCORBIC ACID 1,000 MG TAB PO SCH (10:14)
[2021-04-05] MEDS: BUDESONIDE (INHALATION) 0.5 MG/2 ML NEB NEB SCH ×2 (12:22→18:38)
[2021-04-05] MEDS: INSULIN LANTUS (GLARGINE) 1 /0.01ml (100units/ml) SC SCH (21:20)
[2021-04-06] VITALS (80 sets, daily range): BP systolic 86–130; BP diastolic 49–76
[2021-04-06] MEDS: IPRATROPIUM BROM 0.5 MG/2.5ML INH SOL NEB SCH ×4 (00:16→20:00)
[2021-04-06] MEDS: LEVALBUTEROL HCL 1.25 MG/3 ML NEB NEB SCH ×4 (00:17→20:01)
[2021-04-06] MEDS: SODIUM CHLOR 0.9% PF (SALINE LOCK) 10ML VIAL/SYR IV SCH ×3 (02:04→21:56)
[2021-04-06] MEDS: METOCLOPRAMIDE HCL 5MG/ml INJ 2ml VIAL IV SCH ×4 (05:11→23:11)
[2021-04-06] MEDS: InsuLIN REG 1unit/0.01ml Soln (100units/ml) SC SCH ×3 (05:11→23:12)
[2021-04-06 06:02] LABS: Potassium 3.5 mmol/L (3.5-5.1)
[2021-04-06 06:06] LABS: Basophils # (auto) 0 10 ^3/uL (0-0.2); Basophils % (auto) 0.3 % (0.0-2.0); Eosinophils # (auto) 0 10 ^3/uL (0-0.8); Eosinophils % (auto) 0.4 % (0.0-7.0); Hematocrit 41.1 % (41.0-53.0); Hemoglobin 13.9 g/dL (13.5-17.5); Lymphocytes # (auto) 1.6 10 ^3/uL (0.4-5.4); Lymphocytes % (auto) 14.3 % (10.0-50.0); Mean Corpuscular Hemoglobin 28.2 pg (28.0-32.0); Mean Corpuscular Hgb Conc. 33.8 g/dL (32.0-36.0); Mean Corpuscular Volume 83.4 fL (80.0-100.0); Monocytes # (auto) 0.8 10 ^3/uL (0-1.3); Monocytes % (auto) 6.7 % (0.0-12.0); Neutrophils # (auto) 8.9 10 ^3/uL (1.6-8.6); Neutrophils % (auto) 78.3 % (37.0-80.0); Nucleated Red Blood Cells % 0.1 %; Platelet Count (auto) 253 10^3/uL (140-450); Red Blood Cells 4.93 10^6/uL (4.5-5.90); Red Cell Distribution Width 15.5 % (11.8-14.3); White Blood Cell 11.4 10^3/uL (4.4-10.8)
[2021-04-06] MEDS: BUDESONIDE (INHALATION) 0.5 MG/2 ML NEB NEB SCH ×2 (06:33→20:01)
[2021-04-06 06:49] LABS: Albumin 2.5 g/dL (3.4-5.0); BUN/Creatinine Ratio 54.8; Bilirubin, Total 1.3 mg/dL (0.2-1.0); Phosphorus 2.7 mg/dL (2.5-4.90); Total Protein 6.7 g/dL (6.4-8.2)
[2021-04-06] MEDS: PANTOPRAZOLE 40 MG/10 ML VIAL INJ IV SCH (09:35)
[2021-04-06] MEDS: FUROSEMIDE 40 MG/4 ML VIAL IV SCH (09:35)
[2021-04-06] MEDS: ZINC SULFATE 220mg CAP or TAB PO SCH (09:36)
[2021-04-06] MEDS: AMIODARONE HCL 200 MG TAB PO SCH (09:37)
[2021-04-06] MEDS: APIXABAN 5 MG TAB PO SCH ×2 (09:37→21:56)
[2021-04-06] MEDS: DIGOXIN 0.125 MG TAB PO SCH (09:42)
[2021-04-06] MEDS: ASCORBIC ACID 1,000 MG TAB PO SCH (09:42)
[2021-04-06] MEDS: CHOLECALCIFEROL (VITD3) 2,000 UNIT CAP/TAB PO SCH (09:42)
[2021-04-06] MEDS: NOREPINEPHRINE 8 MG/250ML KIT 250 ML IV SCH (20:56)
[2021-04-06] MEDS: fentaNYL Drip 2500mCg/250mlNS 250 ML IV SCH (20:56)
[2021-04-06] MEDS: INSULIN LANTUS (GLARGINE) 1 /0.01ml (100units/ml) SC SCH (21:29)
[2021-04-06] MEDS ORDERED: DEXTROSE 50% SYRINGE 50 ML IV ONE (21:53)
[2021-04-06] MEDS ORDERED: DEXTROSE (50%) 50ML SYRG IV PRN (22:00)
[2021-04-07] VITALS (91 sets, daily range): BP systolic 75–150; BP diastolic 53–85
[2021-04-07] MEDS: LEVALBUTEROL HCL 1.25 MG/3 ML NEB NEB SCH ×4 (02:46→19:11)
[2021-04-07] MEDS: IPRATROPIUM BROM 0.5 MG/2.5ML INH SOL NEB SCH ×4 (02:46→19:11)
[2021-04-07] MEDS: PROPOFOL 100 ML IV SCH (05:38)
[2021-04-07] MEDS: SODIUM CHLOR 0.9% PF (SALINE LOCK) 10ML VIAL/SYR IV SCH ×3 (05:39→22:27)
[2021-04-07] MEDS: InsuLIN REG 1unit/0.01ml Soln (100units/ml) SC SCH ×2 (05:57→12:00)
[2021-04-07] MEDS ORDERED: ACCU-CHEK COMFORT CURVE STRIP VI SCH (06:00)
[2021-04-07] MEDS: METOCLOPRAMIDE HCL 5MG/ml INJ 2ml VIAL IV SCH ×2 (06:12→15:50)
[2021-04-07] MEDS: BUDESONIDE (INHALATION) 0.5 MG/2 ML NEB NEB SCH ×2 (06:25→19:11)
[2021-04-07 06:46] LABS: BUN/Creatinine Ratio 52.1; Calcium 7.8 mg/dL (8.5-10.1); Magnesium 1.6 mg/dL (1.6-2.6)
[2021-04-07 07:07] LABS: Potassium 2.8 mmol/L (3.5-5.1)
[2021-04-07] MEDS: POTASSIUM CHL 20MEQ/100ML 100 ML IV SCH ×2 (08:01→09:45)
[2021-04-07] MEDS: MAGNESIUM SULFATE 1GM/100ML 100 ML IV SCH ×2 (08:02→09:00)
[2021-04-07] MEDS: PANTOPRAZOLE 40 MG/10 ML VIAL INJ IV SCH (10:58)
[2021-04-07] MEDS: ZINC SULFATE 220mg CAP or TAB PO SCH (10:58)
[2021-04-07] MEDS: DIGOXIN 0.125 MG TAB PO SCH (10:59)
[2021-04-07] MEDS: ASCORBIC ACID 1,000 MG TAB PO SCH (10:59)
[2021-04-07] MEDS: AMIODARONE HCL 200 MG TAB PO SCH (10:59)
[2021-04-07] MEDS: APIXABAN 5 MG TAB PO SCH ×2 (10:59→22:26)
[2021-04-07] MEDS ORDERED: DexAMETHasone SOD PHOS 4 MG/1ML SDV INJ IV ONE (10:59)
[2021-04-07] MEDS: CHOLECALCIFEROL (VITD3) 2,000 UNIT CAP/TAB PO SCH (11:00)
[2021-04-07] MEDS ORDERED: METOPROLOL TARTRATE 25 MG TAB PO ONE (11:00)
[2021-04-07] MEDS: MIDAZOLAM DRIP 50 mg/50mL 50 ML IV SCH (11:00)
[2021-04-07] MEDS ORDERED: DEXTROSE (50%) 50ML SYRG IV PRN (11:00)
[2021-04-07] MEDS ORDERED: SODIUM CHLORIDE 0.9% 500 ML IV ONE (11:00)
[2021-04-07] MEDS ORDERED: POTASSIUM EFFERVESENT TAB 25 MEQ GT ONE (11:15)
[2021-04-07] MEDS: ACCU-CHEK COMFORT CURVE STRIP VI SCH (12:00)
[2021-04-07] MEDS: FUROSEMIDE 40 MG/4 ML VIAL IV SCH (15:39)
[2021-04-07] MEDS: NOREPINEPHRINE 8 MG/250ML KIT 250 ML IV SCH (20:49)
[2021-04-07] MEDS ORDERED: INSULIN LANTUS (GLARGINE) 1 /0.01ml (100units/ml) SC SCH (22:00)
[2021-04-07] MEDS: METOPROLOL TARTRATE 25 MG TAB PO SCH (22:27)
[2021-04-08] VITALS (74 sets, daily range): BP systolic 93–130; BP diastolic 52–81
[2021-04-08] MEDS: METOCLOPRAMIDE HCL 5MG/ml INJ 2ml VIAL IV SCH ×5 (00:12→23:57)
[2021-04-08] MEDS: ACCU-CHEK COMFORT CURVE STRIP VI SCH ×5 (00:12→23:57)
[2021-04-08] MEDS: InsuLIN REG 1unit/0.01ml Soln (100units/ml) SC SCH ×5 (00:28→23:57)
[2021-04-08] MEDS: IPRATROPIUM BROM 0.5 MG/2.5ML INH SOL NEB SCH ×4 (00:42→18:29)
[2021-04-08] MEDS: LEVALBUTEROL HCL 1.25 MG/3 ML NEB NEB SCH ×4 (00:42→18:30)
[2021-04-08] MEDS: ACETAMINOPHEN 500 MG TAB PO PRN (01:00)
[2021-04-08] MEDS: MIDAZOLAM DRIP 50 mg/50mL 50 ML IV SCH ×2 (02:00→23:57)
[2021-04-08] MEDS ORDERED: LORazepam 2MG/ML-1ML VIAL IV ONE (03:00)
[2021-04-08 04:57] LABS: Magnesium 1.6 mg/dL (1.6-2.6)
[2021-04-08 05:05] LABS: CRP High Sensitivity 12.2 mg/dL (< 0.3)
[2021-04-08 05:10] LABS: Potassium 2.9 mmol/L (3.5-5.1)
[2021-04-08] MEDS ORDERED: POTASSIUM CHL 20MEQ/100ML 100 ML IV ONE ×2 (05:45→05:49)
[2021-04-08] MEDS: SODIUM CHLOR 0.9% PF (SALINE LOCK) 10ML VIAL/SYR IV SCH ×3 (06:21→20:54)
[2021-04-08] MEDS: BUDESONIDE (INHALATION) 0.5 MG/2 ML NEB NEB SCH ×2 (06:28→18:30)
[2021-04-08] MEDS: NOREPINEPHRINE 8 MG/250ML KIT 250 ML IV SCH (10:30)
[2021-04-08] MEDS ORDERED: MAGNESIUM SULFATE 1GM/100ML 100 ML IV ONE (10:45)
[2021-04-08] MEDS ORDERED: POTASSIUM EFFERVESENT TAB 25 MEQ GT ONE (10:45)
[2021-04-08] MEDS: DexAMETHasone SOD PHOS 4 MG/1ML SDV INJ IV SCH (10:50)
[2021-04-08] MEDS: ZINC SULFATE 220mg CAP or TAB PO SCH (10:51)
[2021-04-08] MEDS: PANTOPRAZOLE 40 MG/10 ML VIAL INJ IV SCH (10:51)
[2021-04-08] MEDS: APIXABAN 5 MG TAB PO SCH ×2 (10:51→20:33)
[2021-04-08] MEDS: DIGOXIN 0.125 MG TAB PO SCH (10:51)
[2021-04-08] MEDS: CHOLECALCIFEROL (VITD3) 2,000 UNIT CAP/TAB PO SCH (10:52)
[2021-04-08] MEDS: ASCORBIC ACID 1,000 MG TAB PO SCH (10:52)
[2021-04-08] MEDS: METOPROLOL TARTRATE 25 MG TAB PO SCH ×2 (10:52→20:33)
[2021-04-08] MEDS ORDERED: FUROSEMIDE 40 MG/4 ML VIAL IV ONE (14:30)
[2021-04-08] MEDS ORDERED: HALOPERIDOL LACTATE 5 MG/ML INJ VIAL ONE (15:58)
[2021-04-08] MEDS: fentaNYL Drip 2500mCg/250mlNS 250 ML IV SCH (19:33)
[2021-04-08] MEDS: AMIODARONE HCL 200 MG TAB PO SCH (20:33)
[2021-04-08] MEDS ORDERED: INSULIN LANTUS (GLARGINE) 1 /0.01ml (100units/ml) SC SCH (22:00)
[2021-04-09] VITALS (75 sets, daily range): BP systolic 87–157; BP diastolic 53–89
[2021-04-09] MEDS: LEVALBUTEROL HCL 1.25 MG/3 ML NEB NEB SCH ×4 (00:21→18:30)
[2021-04-09] MEDS: IPRATROPIUM BROM 0.5 MG/2.5ML INH SOL NEB SCH ×4 (00:21→18:31)
[2021-04-09 03:53] LABS: Basophils # (auto) 0.1 10 ^3/uL (0-0.2); Eosinophils # (auto) 0.1 10 ^3/uL (0-0.8); Eosinophils % (auto) 0.7 % (0.0-7.0); Hematocrit 41.1 % (41.0-53.0); Hemoglobin 13.8 g/dL (13.5-17.5); Lymphocytes # (auto) 1.2 10 ^3/uL (0.4-5.4); Lymphocytes % (auto) 14.4 % (10.0-50.0); Mean Corpuscular Hemoglobin 27.9 pg (28.0-32.0); Mean Corpuscular Hgb Conc. 33.5 g/dL (32.0-36.0); Mean Corpuscular Volume 83.1 fL (80.0-100.0); Monocytes # (auto) 0.6 10 ^3/uL (0-1.3); Monocytes % (auto) 6.9 % (0.0-12.0); Neutrophils # (auto) 6.4 10 ^3/uL (1.6-8.6); Platelet Count (auto) 204 10^3/uL (140-450); Red Blood Cells 4.94 10^6/uL (4.5-5.90); Red Cell Distribution Width 16.2 % (11.8-14.3); White Blood Cell 8.3 10^3/uL (4.4-10.8)
[2021-04-09 04:06] LABS: Potassium 3.5 mmol/L (3.5-5.1)
[2021-04-09 04:10] LABS: Magnesium 1.7 mg/dL (1.6-2.6)
[2021-04-09] MEDS: METOCLOPRAMIDE HCL 5MG/ml INJ 2ml VIAL IV SCH ×3 (05:40→18:32)
[2021-04-09] MEDS: SODIUM CHLOR 0.9% PF (SALINE LOCK) 10ML VIAL/SYR IV SCH ×3 (05:41→21:04)
[2021-04-09] MEDS: InsuLIN REG 1unit/0.01ml Soln (100units/ml) SC SCH ×3 (05:41→18:00)
[2021-04-09] MEDS: ACCU-CHEK COMFORT CURVE STRIP VI SCH ×3 (05:41→18:00)
[2021-04-09] MEDS: MIDAZOLAM DRIP 50 mg/50mL 50 ML IV SCH (06:14)
[2021-04-09] MEDS: BUDESONIDE (INHALATION) 0.5 MG/2 ML NEB NEB SCH ×2 (08:17→18:31)
[2021-04-09] MEDS: DexAMETHasone SOD PHOS 4 MG/1ML SDV INJ IV SCH (10:00)
[2021-04-09] MEDS: PANTOPRAZOLE 40 MG/10 ML VIAL INJ IV SCH (10:00)
[2021-04-09] MEDS ORDERED: FUROSEMIDE 20 MG/2 ML VIAL IV SCH (10:00)
[2021-04-09] MEDS: ZINC SULFATE 220mg CAP or TAB PO SCH (10:00)
[2021-04-09] MEDS: FUROSEMIDE 20 MG/2 ML VIAL IV SCH (10:00)
[2021-04-09] MEDS: DIGOXIN 0.125 MG TAB PO SCH (10:01)
[2021-04-09] MEDS: APIXABAN 5 MG TAB PO SCH ×2 (10:01→21:05)
[2021-04-09] MEDS: AMIODARONE HCL 200 MG TAB PO SCH ×2 (10:01→21:05)
[2021-04-09] MEDS: METOPROLOL TARTRATE 25 MG TAB PO SCH ×2 (10:01→21:05)
[2021-04-09] MEDS: CHOLECALCIFEROL (VITD3) 2,000 UNIT CAP/TAB PO SCH (10:02)
[2021-04-09] MEDS: ASCORBIC ACID 1,000 MG TAB PO SCH (10:02)
[2021-04-09] MEDS: NOREPINEPHRINE 8 MG/250ML KIT 250 ML IV SCH (10:30)
[2021-04-09] MEDS ORDERED: MAGNESIUM SULFATE 1GM/100ML 100 ML IV ONE (12:00)
[2021-04-09] MEDS ORDERED: POTASSIUM EFFERVESENT TAB 25 MEQ GT ONE (12:00)
[2021-04-09] MEDS ORDERED: DOXYCYCLINE 100MG/250ML 250 ML IV ONE (12:00)
[2021-04-09] MEDS ORDERED: INSULIN LANTUS (GLARGINE) 1 /0.01ml (100units/ml) SC SCH (22:00)
[2021-04-10] VITALS (73 sets, daily range): BP systolic 88–139; BP diastolic 51–93
[2021-04-10] MEDS: IPRATROPIUM BROM 0.5 MG/2.5ML INH SOL NEB SCH ×4 (00:15→18:15)
[2021-04-10] MEDS: LEVALBUTEROL HCL 1.25 MG/3 ML NEB NEB SCH ×4 (00:15→18:15)
[2021-04-10] MEDS: DOXYCYCLINE 100MG/250ML 250 ML IV SCH ×2 (00:24→11:46)
[2021-04-10] MEDS: METOCLOPRAMIDE HCL 5MG/ml INJ 2ml VIAL IV SCH ×4 (00:24→18:06)
[2021-04-10] MEDS: ACCU-CHEK COMFORT CURVE STRIP VI SCH ×5 (00:24→23:28)
[2021-04-10] MEDS: MIDAZOLAM DRIP 50 mg/50mL 50 ML IV SCH ×2 (00:36→18:30)
[2021-04-10 04:23] LABS: Basophils # (auto) 0 10 ^3/uL (0-0.2); Basophils % (auto) 0.2 % (0.0-2.0); Eosinophils # (auto) 0.1 10 ^3/uL (0-0.8); Eosinophils % (auto) 1.4 % (0.0-7.0); Hematocrit 39.3 % (41.0-53.0); Hemoglobin 13.4 g/dL (13.5-17.5); Lymphocytes # (auto) 1.4 10 ^3/uL (0.4-5.4); Lymphocytes % (auto) 16.9 % (10.0-50.0); Mean Corpuscular Hemoglobin 28.3 pg (28.0-32.0); Mean Corpuscular Hgb Conc. 34.1 g/dL (32.0-36.0); Monocytes # (auto) 0.6 10 ^3/uL (0-1.3); Monocytes % (auto) 7.3 % (0.0-12.0); Neutrophils # (auto) 6.2 10 ^3/uL (1.6-8.6); Neutrophils % (auto) 74.2 % (37.0-80.0); Nucleated Red Blood Cells % 0.4 %; Platelet Count (auto) 206 10^3/uL (140-450); Red Blood Cells 4.73 10^6/uL (4.5-5.90); Red Cell Distribution Width 16.4 % (11.8-14.3); White Blood Cell 8.3 10^3/uL (4.4-10.8)
[2021-04-10 04:44] LABS: Potassium 3.4 mmol/L (3.5-5.1)
[2021-04-10 04:48] LABS: BUN/Creatinine Ratio 68.8; Calcium 7.9 mg/dL (8.5-10.1); Magnesium 1.7 mg/dL (1.6-2.6)
[2021-04-10] MEDS: SODIUM CHLOR 0.9% PF (SALINE LOCK) 10ML VIAL/SYR IV SCH ×3 (05:49→21:46)
[2021-04-10] MEDS: InsuLIN REG 1unit/0.01ml Soln (100units/ml) SC SCH ×5 (05:49→23:28)
[2021-04-10] MEDS: LORazepam 2MG/ML-1ML VIAL IV PRN (08:15)
[2021-04-10] MEDS: METOPROLOL TARTRATE 25 MG TAB PO SCH ×2 (10:00→21:47)
[2021-04-10] MEDS: DexAMETHasone SOD PHOS 4 MG/1ML SDV INJ IV SCH (10:11)
[2021-04-10] MEDS: FUROSEMIDE 20 MG/2 ML VIAL IV SCH (10:11)
[2021-04-10] MEDS: PANTOPRAZOLE 40 MG/10 ML VIAL INJ IV SCH (10:12)
[2021-04-10] MEDS: ZINC SULFATE 220mg CAP or TAB PO SCH (10:12)
[2021-04-10] MEDS: CHOLECALCIFEROL (VITD3) 2,000 UNIT CAP/TAB PO SCH (10:13)
[2021-04-10] MEDS: AMIODARONE HCL 200 MG TAB PO SCH ×2 (10:13→21:46)
[2021-04-10] MEDS: APIXABAN 5 MG TAB PO SCH ×2 (10:13→21:47)
[2021-04-10] MEDS: DIGOXIN 0.125 MG TAB PO SCH (10:13)
[2021-04-10] MEDS: ASCORBIC ACID 1,000 MG TAB PO SCH (10:13)
[2021-04-10] MEDS: NOREPINEPHRINE 8 MG/250ML KIT 250 ML IV SCH (10:30)
[2021-04-10] MEDS: BUDESONIDE (INHALATION) 0.5 MG/2 ML NEB NEB SCH ×2 (10:52→18:15)
[2021-04-10] MEDS: fentaNYL Drip 2500mCg/250mlNS 250 ML IV SCH (13:48)
[2021-04-10] MEDS ORDERED: POTASSIUM EFFERVESENT TAB 25 MEQ GT ONE (14:00)
[2021-04-10] MEDS ORDERED: MAGNESIUM SULFATE 1GM/100ML 100 ML IV ONE (14:00)
[2021-04-11] VITALS (92 sets, daily range): BP systolic 90–148; BP diastolic 39–105
[2021-04-11] MEDS: LEVALBUTEROL HCL 1.25 MG/3 ML NEB NEB SCH ×4 (00:12→18:49)
[2021-04-11] MEDS: IPRATROPIUM BROM 0.5 MG/2.5ML INH SOL NEB SCH ×4 (00:12→18:49)
[2021-04-11] MEDS: METOCLOPRAMIDE HCL 5MG/ml INJ 2ml VIAL IV SCH ×4 (00:27→17:33)
[2021-04-11] MEDS: DOXYCYCLINE 100MG/250ML 250 ML IV SCH ×2 (00:27→13:24)
[2021-04-11] MEDS: MIDAZOLAM DRIP 50 mg/50mL 50 ML IV SCH ×4 (00:28→20:00)
[2021-04-11 04:33] LABS: Magnesium 1.6 mg/dL (1.6-2.6); Potassium 3.5 mmol/L (3.5-5.1)
[2021-04-11] MEDS: InsuLIN REG 1unit/0.01ml Soln (100units/ml) SC SCH ×3 (06:00→17:45)
[2021-04-11] MEDS: SODIUM CHLOR 0.9% PF (SALINE LOCK) 10ML VIAL/SYR IV SCH ×3 (06:06→22:09)
[2021-04-11] MEDS: ACCU-CHEK COMFORT CURVE STRIP VI SCH ×3 (06:06→17:45)
[2021-04-11] MEDS: fentaNYL Drip 2500mCg/250mlNS 250 ML IV SCH ×3 (07:51→23:48)
[2021-04-11] MEDS: BUDESONIDE (INHALATION) 0.5 MG/2 ML NEB NEB SCH ×2 (08:54→18:49)
[2021-04-11] MEDS: DexAMETHasone SOD PHOS 4 MG/1ML SDV INJ IV SCH (09:32)
[2021-04-11] MEDS: CHOLECALCIFEROL (VITD3) 2,000 UNIT CAP/TAB PO SCH (09:37)
[2021-04-11] MEDS: METOPROLOL TARTRATE 25 MG TAB PO SCH ×2 (09:37→22:09)
[2021-04-11] MEDS: ASCORBIC ACID 1,000 MG TAB PO SCH (09:37)
[2021-04-11] MEDS: ZINC SULFATE 220mg CAP or TAB PO SCH (09:37)
[2021-04-11] MEDS: NOREPINEPHRINE 8 MG/250ML KIT 250 ML IV SCH (09:38)
[2021-04-11] MEDS: DIGOXIN 0.125 MG TAB PO SCH (09:38)
[2021-04-11] MEDS: AMIODARONE HCL 200 MG TAB PO SCH ×2 (09:38→22:09)
[2021-04-11] MEDS: APIXABAN 5 MG TAB PO SCH ×2 (09:38→22:09)
[2021-04-11] MEDS: FUROSEMIDE 20 MG/2 ML VIAL IV SCH (09:43)
[2021-04-11] MEDS: PANTOPRAZOLE 40 MG/10 ML VIAL INJ IV SCH (09:44)
[2021-04-11] MEDS: LACTULOSE 20Gm/30ML SOLN PO SCH ×2 (13:25→17:33)
[2021-04-11] MEDS ORDERED: Glucerna 1.2 Cal 1Liter BOTTLE GT SCH (16:00)
[2021-04-12] VITALS (86 sets, daily range): BP systolic 96–155; BP diastolic 58–102
[2021-04-12] MEDS: METOCLOPRAMIDE HCL 5MG/ml INJ 2ml VIAL IV SCH ×5 (00:03→23:50)
[2021-04-12] MEDS: ACCU-CHEK COMFORT CURVE STRIP VI SCH ×5 (00:03→23:51)
[2021-04-12] MEDS: DOXYCYCLINE 100MG/250ML 250 ML IV SCH ×3 (00:03→23:50)
[2021-04-12] MEDS: LACTULOSE 20Gm/30ML SOLN PO SCH ×5 (00:04→23:51)
[2021-04-12] MEDS: IPRATROPIUM BROM 0.5 MG/2.5ML INH SOL NEB SCH ×4 (00:49→18:14)
[2021-04-12] MEDS: LEVALBUTEROL HCL 1.25 MG/3 ML NEB NEB SCH ×4 (00:50→18:14)
[2021-04-12] MEDS: SODIUM CHLOR 0.9% PF (SALINE LOCK) 10ML VIAL/SYR IV SCH ×3 (05:47→22:14)
[2021-04-12] MEDS: InsuLIN REG 1unit/0.01ml Soln (100units/ml) SC SCH ×5 (05:48→23:51)
[2021-04-12 05:55] LABS: Basophils # (auto) 0 10 ^3/uL (0-0.2); Basophils % (auto) 0.3 % (0.0-2.0); Eosinophils # (auto) 0.1 10 ^3/uL (0-0.8); Eosinophils % (auto) 0.9 % (0.0-7.0); Hematocrit 40.7 % (41.0-53.0); Hemoglobin 14.2 g/dL (13.5-17.5); Lymphocytes # (auto) 1.8 10 ^3/uL (0.4-5.4); Lymphocytes % (auto) 19.5 % (10.0-50.0); Mean Corpuscular Hemoglobin 28.8 pg (28.0-32.0); Mean Corpuscular Hgb Conc. 34.8 g/dL (32.0-36.0); Mean Corpuscular Volume 82.6 fL (80.0-100.0); Monocytes # (auto) 0.6 10 ^3/uL (0-1.3); Monocytes % (auto) 6.3 % (0.0-12.0); Neutrophils # (auto) 6.6 10 ^3/uL (1.6-8.6); Nucleated Red Blood Cells % 0.1 %; Platelet Count (auto) 192 10^3/uL (140-450); Red Blood Cells 4.93 10^6/uL (4.5-5.90); Red Cell Distribution Width 16.2 % (11.8-14.3); White Blood Cell 9.1 10^3/uL (4.4-10.8)
[2021-04-12 06:12] LABS: Magnesium 1.6 mg/dL (1.6-2.6); Potassium 3.5 mmol/L (3.5-5.1)
[2021-04-12] MEDS: PANTOPRAZOLE 40 MG/10 ML VIAL INJ IV SCH (09:48)
[2021-04-12] MEDS: ASCORBIC ACID 1,000 MG TAB PO SCH (09:48)
[2021-04-12] MEDS: AMIODARONE HCL 200 MG TAB PO SCH ×2 (09:49→22:14)
[2021-04-12] MEDS: FUROSEMIDE 20 MG/2 ML VIAL IV SCH (09:49)
[2021-04-12] MEDS: DIGOXIN 0.125 MG TAB PO SCH (09:49)
[2021-04-12] MEDS: DexAMETHasone SOD PHOS 4 MG/1ML SDV INJ IV SCH (09:49)
[2021-04-12] MEDS: CHOLECALCIFEROL (VITD3) 2,000 UNIT CAP/TAB PO SCH (09:49)
[2021-04-12] MEDS: METOPROLOL TARTRATE 25 MG TAB PO SCH ×2 (09:50→22:15)
[2021-04-12] MEDS: ZINC SULFATE 220mg CAP or TAB PO SCH (09:50)
[2021-04-12] MEDS: NOREPINEPHRINE 8 MG/250ML KIT 250 ML IV SCH (10:30)
[2021-04-12] MEDS: APIXABAN 5 MG TAB PO SCH ×2 (12:49→22:14)
[2021-04-12] MEDS: fentaNYL Drip 2500mCg/250mlNS 250 ML IV SCH (12:53)
[2021-04-12] MEDS: BUDESONIDE (INHALATION) 0.5 MG/2 ML NEB NEB SCH ×2 (14:13→18:14)
[2021-04-12] MEDS: MIDAZOLAM DRIP 50 mg/50mL 50 ML IV SCH (22:20)
[2021-04-13] VITALS (86 sets, daily range): BP systolic 114–157; BP diastolic 54–103
[2021-04-13] MEDS: IPRATROPIUM BROM 0.5 MG/2.5ML INH SOL NEB SCH ×4 (00:07→18:31)
[2021-04-13] MEDS: LEVALBUTEROL HCL 1.25 MG/3 ML NEB NEB SCH ×4 (00:07→18:31)
[2021-04-13 04:42] LABS: Basophils # (auto) 0 10 ^3/uL (0-0.2); Basophils % (auto) 0.2 % (0.0-2.0); Eosinophils # (auto) 0.1 10 ^3/uL (0-0.8); Eosinophils % (auto) 0.7 % (0.0-7.0); Hematocrit 42.6 % (41.0-53.0); Hemoglobin 15.1 g/dL (13.5-17.5); Lymphocytes # (auto) 2.2 10 ^3/uL (0.4-5.4); Lymphocytes % (auto) 17.6 % (10.0-50.0); Mean Corpuscular Hemoglobin 29.4 pg (28.0-32.0); Mean Corpuscular Hgb Conc. 35.4 g/dL (32.0-36.0); Mean Corpuscular Volume 82.9 fL (80.0-100.0); Monocytes # (auto) 0.9 10 ^3/uL (0-1.3); Monocytes % (auto) 6.9 % (0.0-12.0); Neutrophils # (auto) 9.1 10 ^3/uL (1.6-8.6); Neutrophils % (auto) 74.6 % (37.0-80.0); Nucleated Red Blood Cells % 0.4 %; Platelet Count (auto) 191 10^3/uL (140-450); Red Blood Cells 5.14 10^6/uL (4.5-5.90); Red Cell Distribution Width 16.5 % (11.8-14.3); White Blood Cell 12.3 10^3/uL (4.4-10.8)
[2021-04-13 04:57] LABS: BUN/Creatinine Ratio 46.8; Calcium 8.9 mg/dL (8.5-10.1); Potassium 3.4 mmol/L (3.5-5.1)
[2021-04-13] MEDS: ACCU-CHEK COMFORT CURVE STRIP VI SCH ×3 (05:58→16:58)
[2021-04-13] MEDS: InsuLIN REG 1unit/0.01ml Soln (100units/ml) SC SCH ×3 (05:58→18:00)
[2021-04-13] MEDS: LACTULOSE 20Gm/30ML SOLN PO SCH ×3 (05:58→16:58)
[2021-04-13] MEDS: METOCLOPRAMIDE HCL 5MG/ml INJ 2ml VIAL IV SCH ×3 (05:58→16:58)
[2021-04-13] MEDS: SODIUM CHLOR 0.9% PF (SALINE LOCK) 10ML VIAL/SYR IV SCH ×3 (06:04→21:25)
[2021-04-13] MEDS: MIDAZOLAM DRIP 50 mg/50mL 50 ML IV SCH (06:17)
[2021-04-13] MEDS: BUDESONIDE (INHALATION) 0.5 MG/2 ML NEB NEB SCH ×2 (06:52→18:31)
[2021-04-13] MEDS: DexAMETHasone SOD PHOS 4 MG/1ML SDV INJ IV SCH (09:09)
[2021-04-13] MEDS: FUROSEMIDE 20 MG/2 ML VIAL IV SCH (09:09)
[2021-04-13] MEDS: AMIODARONE HCL 200 MG TAB PO SCH ×2 (09:10→21:25)
[2021-04-13] MEDS: ASCORBIC ACID 1,000 MG TAB PO SCH (09:10)
[2021-04-13] MEDS: PANTOPRAZOLE 40 MG/10 ML VIAL INJ IV SCH (09:10)
[2021-04-13] MEDS: DIGOXIN 0.125 MG TAB PO SCH (09:11)
[2021-04-13] MEDS: ZINC SULFATE 220mg CAP or TAB PO SCH (09:12)
[2021-04-13] MEDS: METOPROLOL TARTRATE 25 MG TAB PO SCH ×2 (09:12→21:26)
[2021-04-13] MEDS: CHOLECALCIFEROL (VITD3) 2,000 UNIT CAP/TAB PO SCH (09:13)
[2021-04-13] MEDS: NOREPINEPHRINE 8 MG/250ML KIT 250 ML IV SCH (10:30)
[2021-04-13] MEDS ORDERED: MAGNESIUM SULFATE 1GM/100ML 100 ML IV ONE (11:15)
[2021-04-13] MEDS: DOXYCYCLINE 100MG/250ML 250 ML IV SCH (11:45)
[2021-04-13] MEDS: fentaNYL Drip 2500mCg/250mlNS 250 ML IV SCH (12:00)
[2021-04-13 13:01] LABS: INR 1.2 (0.9-1.15)
[2021-04-13] MEDS ORDERED: POTASSIUM EFFERVESENT TAB 25 MEQ GT ONE (13:45)
[2021-04-13] MEDS: APIXABAN 5 MG TAB PO SCH ×2 (16:58→21:25)
[2021-04-14] VITALS (91 sets, daily range): BP systolic 79–139; BP diastolic 29–87
[2021-04-14] MEDS: InsuLIN REG 1unit/0.01ml Soln (100units/ml) SC SCH ×4 (06:00→17:04)
[2021-04-14] MEDS: LEVALBUTEROL HCL 1.25 MG/3 ML NEB NEB SCH ×4 (06:00→18:19)
[2021-04-14] MEDS: LACTULOSE 20Gm/30ML SOLN PO SCH ×4 (06:00→13:22)
[2021-04-14] MEDS: IPRATROPIUM BROM 0.5 MG/2.5ML INH SOL NEB SCH ×4 (06:00→18:19)
[2021-04-14] MEDS: DOXYCYCLINE 100MG/250ML 250 ML IV SCH (06:11)
[2021-04-14] MEDS: SODIUM CHLOR 0.9% PF (SALINE LOCK) 10ML VIAL/SYR IV SCH ×3 (06:11→23:08)
[2021-04-14] MEDS: METOCLOPRAMIDE HCL 5MG/ml INJ 2ml VIAL IV SCH ×4 (06:11→16:56)
[2021-04-14] MEDS: ACCU-CHEK COMFORT CURVE STRIP VI SCH ×4 (06:13→16:58)
[2021-04-14] MEDS: BUDESONIDE (INHALATION) 0.5 MG/2 ML NEB NEB SCH ×2 (06:17→18:19)
[2021-04-14 06:24] LABS: Basophils # (auto) 0.1 10 ^3/uL (0-0.2); Basophils % (auto) 0.4 % (0.0-2.0); Eosinophils # (auto) 0.1 10 ^3/uL (0-0.8); Eosinophils % (auto) 0.7 % (0.0-7.0); Hematocrit 44.8 % (41.0-53.0); Hemoglobin 15.8 g/dL (13.5-17.5); Lymphocytes % (auto) 12.5 % (10.0-50.0); Mean Corpuscular Hemoglobin 29.1 pg (28.0-32.0); Mean Corpuscular Hgb Conc. 35.2 g/dL (32.0-36.0); Mean Corpuscular Volume 82.5 fL (80.0-100.0); Monocytes # (auto) 0.9 10 ^3/uL (0-1.3); Monocytes % (auto) 5.3 % (0.0-12.0); Neutrophils # (auto) 13.1 10 ^3/uL (1.6-8.6); Neutrophils % (auto) 81.1 % (37.0-80.0); Nucleated Red Blood Cells % 0.1 %; Platelet Count (auto) 215 10^3/uL (140-450); Red Blood Cells 5.43 10^6/uL (4.5-5.90); Red Cell Distribution Width 16.4 % (11.8-14.3); White Blood Cell 16.2 10^3/uL (4.4-10.8)
[2021-04-14 06:45] LABS: Potassium 3.6 mmol/L (3.5-5.1)
[2021-04-14 06:51] LABS: BUN/Creatinine Ratio 44.3; Magnesium 1.8 mg/dL (1.6-2.6)
[2021-04-14] MEDS: FUROSEMIDE 20 MG/2 ML VIAL IV SCH (08:30)
[2021-04-14] MEDS: PANTOPRAZOLE 40 MG/10 ML VIAL INJ IV SCH (09:12)
[2021-04-14] MEDS ORDERED: MEROPENEM 1GM IVPB 100 ML IV ONE (09:15)
[2021-04-14] MEDS: CHOLECALCIFEROL (VITD3) 2,000 UNIT CAP/TAB PO SCH (09:31)
[2021-04-14] MEDS: APIXABAN 5 MG TAB PO SCH (09:31)
[2021-04-14] MEDS: ASCORBIC ACID 1,000 MG TAB PO SCH (09:31)
[2021-04-14] MEDS: DIGOXIN 0.125 MG TAB PO SCH (09:31)
[2021-04-14] MEDS: AMIODARONE HCL 200 MG TAB PO SCH (09:31)
[2021-04-14] MEDS: METOPROLOL TARTRATE 25 MG TAB PO SCH ×2 (09:31→22:00)
[2021-04-14] MEDS: ZINC SULFATE 220mg CAP or TAB PO SCH (09:31)
[2021-04-14] MEDS ORDERED: MAGNESIUM SULFATE 1GM/100ML 100 ML IV ONE ×2 (11:00→13:15)
[2021-04-14] MEDS ORDERED: DIGOXIN (250MCG/ML) 2 ML AMPULE IV ONE (11:00)
[2021-04-14] MEDS: NOREPINEPHRINE 8 MG/250ML KIT 250 ML IV SCH (12:05)
[2021-04-14] MEDS ORDERED: PROPOFOL 100 ML IV ONE (12:12)
[2021-04-14] MEDS: PROPOFOL 100 ML IV SCH ×2 (12:25→16:54)
[2021-04-14] MEDS: MIDAZOLAM DRIP 50 mg/50mL 50 ML IV SCH ×2 (12:29→16:55)
[2021-04-14] MEDS: DexAMETHasone SOD PHOS 4 MG/1ML SDV INJ IV SCH (12:41)
[2021-04-14] MEDS ORDERED: dilTIAZem 25 MG/5 ML VIAL IV ONE (12:45)
[2021-04-14] MEDS ORDERED: POTASSIUM CHL 20MEQ/100ML 100 ML IV ONE (13:15)
[2021-04-14] MEDS ORDERED: AMIODARONE 450mg/250ml AE 250 ML IV SCH ×3 (13:15→19:15)
[2021-04-14] MEDS: fentaNYL Drip 2500mCg/250mlNS 250 ML IV SCH (17:04)
[2021-04-14] MEDS: MEROPENEM 1GM IVPB 100 ML IV SCH (17:05)
[2021-04-14] MEDS: AMIODARONE 450mg/250ml AE 250 ML IV SCH (20:56)
[2021-04-14] MEDS: ENOXAPARIN SOD 150 MG/1 ML SYRINGE SC SCH (23:09)
[2021-04-15] VITALS (94 sets, daily range): BP systolic 82–138; BP diastolic 36–90
[2021-04-15] MEDS: METOCLOPRAMIDE HCL 5MG/ml INJ 2ml VIAL IV SCH ×4 (00:59→18:02)
[2021-04-15] MEDS: InsuLIN REG 1unit/0.01ml Soln (100units/ml) SC SCH ×4 (01:00→18:24)
[2021-04-15] MEDS: MEROPENEM 1GM IVPB 100 ML IV SCH ×3 (01:01→17:25)
[2021-04-15 04:35] LABS: Basophils # (auto) 0.1 10 ^3/uL (0-0.2); Basophils % (auto) 0.3 % (0.0-2.0); Eosinophils # (auto) 0.2 10 ^3/uL (0-0.8); Eosinophils % (auto) 1.1 % (0.0-7.0); Hematocrit 42.8 % (41.0-53.0); Hemoglobin 14.8 g/dL (13.5-17.5); Lymphocytes # (auto) 2.4 10 ^3/uL (0.4-5.4); Lymphocytes % (auto) 16.3 % (10.0-50.0); Mean Corpuscular Hemoglobin 28.8 pg (28.0-32.0); Mean Corpuscular Hgb Conc. 34.7 g/dL (32.0-36.0); Mean Corpuscular Volume 83.1 fL (80.0-100.0); Monocytes # (auto) 1.1 10 ^3/uL (0-1.3); Monocytes % (auto) 7.4 % (0.0-12.0); Neutrophils % (auto) 74.9 % (37.0-80.0); Nucleated Red Blood Cells % 0.1 %; Platelet Count (auto) 221 10^3/uL (140-450); Red Blood Cells 5.15 10^6/uL (4.5-5.90); Red Cell Distribution Width 16.3 % (11.8-14.3); White Blood Cell 14.6 10^3/uL (4.4-10.8)
[2021-04-15 05:04] LABS: Albumin 2.9 g/dL (3.4-5.0); BUN/Creatinine Ratio 49.2; Bilirubin, Total 2.7 mg/dL (0.2-1.0); Calcium 8.7 mg/dL (8.5-10.1); Magnesium 2.4 mg/dL (1.6-2.6); Total Protein 6.8 g/dL (6.4-8.2)
[2021-04-15] MEDS: LACTULOSE 20Gm/30ML SOLN PO SCH ×4 (06:00→17:25)
[2021-04-15] MEDS: ACCU-CHEK COMFORT CURVE STRIP VI SCH ×4 (06:00→18:02)
[2021-04-15] MEDS: SODIUM CHLOR 0.9% PF (SALINE LOCK) 10ML VIAL/SYR IV SCH ×3 (06:24→21:46)
[2021-04-15] MEDS: IPRATROPIUM BROM 0.5 MG/2.5ML INH SOL NEB SCH ×3 (06:29→18:35)
[2021-04-15] MEDS: LEVALBUTEROL HCL 1.25 MG/3 ML NEB NEB SCH ×3 (06:29→18:35)
[2021-04-15] MEDS: BUDESONIDE (INHALATION) 0.5 MG/2 ML NEB NEB SCH ×2 (06:30→18:35)
[2021-04-15] MEDS ORDERED: DIGOXIN (250MCG/ML) 2 ML AMPULE ONE (09:38)
[2021-04-15] MEDS: PANTOPRAZOLE 40 MG/10 ML VIAL INJ IV SCH (09:44)
[2021-04-15] MEDS: ZINC SULFATE 220mg CAP or TAB PO SCH ×2 (09:45→10:00)
[2021-04-15] MEDS: FUROSEMIDE 20 MG/2 ML VIAL IV SCH (09:45)
[2021-04-15] MEDS: DexAMETHasone SOD PHOS 4 MG/1ML SDV INJ IV SCH (09:45)
[2021-04-15] MEDS ORDERED: TPN PER PHARMACY 0 ML IV SCH (09:45)
[2021-04-15] MEDS: ASCORBIC ACID 1,000 MG TAB PO SCH ×2 (09:45→10:00)
[2021-04-15] MEDS: CHOLECALCIFEROL (VITD3) 2,000 UNIT CAP/TAB PO SCH ×2 (09:45→10:00)
[2021-04-15] MEDS: METOPROLOL TARTRATE 25 MG TAB PO SCH ×2 (09:46→21:32)
[2021-04-15] MEDS: ENOXAPARIN SOD 150 MG/1 ML SYRINGE SC SCH ×2 (09:46→21:46)
[2021-04-15] MEDS ORDERED: DIGOXIN (250MCG/ML) 2 ML AMPULE IV SCH (10:00)
[2021-04-15] MEDS: AMIODARONE 450mg/250ml AE 250 ML IV SCH (10:15)
[2021-04-15] MEDS: NOREPINEPHRINE 8 MG/250ML KIT 250 ML IV SCH (10:30)
[2021-04-15] MEDS ORDERED: AMIODARONE 450mg/250ml AE 250 ML IV SCH (11:25)
[2021-04-15 11:27] LABS: Phosphorus 5.4 mg/dL (2.5-4.90); Pre Albumin 24.8 mg/dL (20.0-40.0)
[2021-04-15] MEDS: PROPOFOL 100 ML IV SCH ×2 (11:58→20:00)
[2021-04-15] MEDS ORDERED: DEXTROSE (50%) 50ML SYRG IV SCH (12:00)
[2021-04-15] MEDS: fentaNYL Drip 2500mCg/250mlNS 250 ML IV SCH (18:15)
[2021-04-15] MEDS: TPN PER PHARMACY IV NR ×5 (19:42)
[2021-04-15] MEDS ORDERED: PROPOFOL 200 ML IV ONE (20:38)
[2021-04-15] MEDS ORDERED: AMIODARONE 450mg/250ml AE 250 ML IV ONE (20:38)
[2021-04-16] VITALS (104 sets, daily range): BP systolic 97–141; BP diastolic 49–99
[2021-04-16] MEDS: IPRATROPIUM BROM 0.5 MG/2.5ML INH SOL NEB SCH ×4 (00:20→18:38)
[2021-04-16] MEDS: LEVALBUTEROL HCL 1.25 MG/3 ML NEB NEB SCH ×4 (00:20→18:38)
[2021-04-16] MEDS: MEROPENEM 1GM IVPB 100 ML IV SCH ×3 (00:56→18:04)
[2021-04-16] MEDS: PROPOFOL 100 ML IV SCH ×3 (02:11→18:05)
[2021-04-16] MEDS: fentaNYL Drip 2500mCg/250mlNS 250 ML IV SCH (02:13)
[2021-04-16] MEDS ORDERED: AMIODARONE 450mg/250ml AE 250 ML IV SCH ×2 (03:15→08:15)
[2021-04-16 04:47] LABS: Basophils # (auto) 0.1 10 ^3/uL (0-0.2); Basophils % (auto) 0.8 % (0.0-2.0); Eosinophils # (auto) 0.2 10 ^3/uL (0-0.8); Eosinophils % (auto) 2.8 % (0.0-7.0); Hematocrit 38.2 % (41.0-53.0); Hemoglobin 13.3 g/dL (13.5-17.5); Lymphocytes # (auto) 2.2 10 ^3/uL (0.4-5.4); Lymphocytes % (auto) 26.5 % (10.0-50.0); Mean Corpuscular Hemoglobin 28.7 pg (28.0-32.0); Mean Corpuscular Hgb Conc. 34.8 g/dL (32.0-36.0); Mean Corpuscular Volume 82.5 fL (80.0-100.0); Monocytes # (auto) 0.5 10 ^3/uL (0-1.3); Monocytes % (auto) 6.2 % (0.0-12.0); Neutrophils # (auto) 5.2 10 ^3/uL (1.6-8.6); Neutrophils % (auto) 63.7 % (37.0-80.0); Nucleated Red Blood Cells % 0.2 %; Platelet Count (auto) 176 10^3/uL (140-450); Red Blood Cells 4.63 10^6/uL (4.5-5.90); Red Cell Distribution Width 16.7 % (11.8-14.3); White Blood Cell 8.2 10^3/uL (4.4-10.8)
[2021-04-16 05:03] LABS: Albumin 2.6 g/dL (3.4-5.0); Calcium 7.7 mg/dL (8.5-10.1); Magnesium 1.7 mg/dL (1.6-2.6)
[2021-04-16 05:06] LABS: BUN/Creatinine Ratio 47.4; Bilirubin, Total 1.9 mg/dL (0.2-1.0); Phosphorus 1.8 mg/dL (2.5-4.90)
[2021-04-16] MEDS: LACTULOSE 20Gm/30ML SOLN PO SCH ×4 (06:00→18:00)
[2021-04-16] MEDS: ACCU-CHEK COMFORT CURVE STRIP VI SCH ×4 (06:00→17:34)
[2021-04-16] MEDS: InsuLIN REG 1unit/0.01ml Soln (100units/ml) SC SCH ×4 (06:30→17:53)
[2021-04-16] MEDS ORDERED: POTASSIUM CHL 20MEQ/100ML 100 ML IV ONE (06:30)
[2021-04-16] MEDS: METOCLOPRAMIDE HCL 5MG/ml INJ 2ml VIAL IV SCH ×4 (06:49→17:44)
[2021-04-16] MEDS: SODIUM CHLOR 0.9% PF (SALINE LOCK) 10ML VIAL/SYR IV SCH ×3 (06:49→21:59)
[2021-04-16] MEDS ORDERED: DIGOXIN (250MCG/ML) 2 ML AMPULE ONE (09:58)
[2021-04-16] MEDS ORDERED: DIGOXIN 0.125 MG TAB PO SCH (10:00)
[2021-04-16] MEDS: CHOLECALCIFEROL (VITD3) 2,000 UNIT CAP/TAB PO SCH (10:00)
[2021-04-16] MEDS: METOPROLOL TARTRATE 25 MG TAB PO SCH ×2 (10:00→22:00)
[2021-04-16] MEDS: ZINC SULFATE 220mg CAP or TAB PO SCH (10:00)
[2021-04-16] MEDS: ASCORBIC ACID 1,000 MG TAB PO SCH (10:00)
[2021-04-16] MEDS: BUDESONIDE (INHALATION) 0.5 MG/2 ML NEB NEB SCH ×2 (10:02→18:38)
[2021-04-16 10:04] LABS: Albumin 2.7 g/dL (3.4-5.0); Magnesium 1.7 mg/dL (1.6-2.6)
[2021-04-16 10:08] LABS: Bilirubin, Total 1.7 mg/dL (0.2-1.0); Phosphorus 1.7 mg/dL (2.5-4.90); Total Protein 6.3 g/dL (6.4-8.2)
[2021-04-16 10:11] LABS: BUN/Creatinine Ratio 65.5
[2021-04-16 10:13] LABS: Potassium 2.9 mmol/L (3.5-5.1)
[2021-04-16] MEDS: DexAMETHasone SOD PHOS 4 MG/1ML SDV INJ IV SCH (10:29)
[2021-04-16] MEDS: ENOXAPARIN SOD 150 MG/1 ML SYRINGE SC SCH ×2 (10:29→21:59)
[2021-04-16] MEDS: PANTOPRAZOLE 40 MG/10 ML VIAL INJ IV SCH (10:29)
[2021-04-16] MEDS: NOREPINEPHRINE 8 MG/250ML KIT 250 ML IV SCH (10:30)
[2021-04-16] MEDS: FUROSEMIDE 40 MG/4 ML VIAL IV SCH (10:30)
[2021-04-16] MEDS: MIDAZOLAM DRIP 50 mg/50mL 50 ML IV SCH (10:30)
[2021-04-16] MEDS ORDERED: POTASSIUM CHL 20MEQ/100ML 200 ML IV ONE (10:40)
[2021-04-16] MEDS: POTASSIUM CHL 20MEQ/100ML 100 ML IV SCH ×2 (11:17→13:00)
[2021-04-16] MEDS ORDERED: MAGNESIUM SULFATE 1GM/100ML 100 ML IV ONE (14:00)
[2021-04-16] MEDS ORDERED: SODIUM PHOSPHATES 24 MEQ in SODIUM CHL 0.9% 100 ML IV ONE (15:00)
[2021-04-16] MEDS: AMIODARONE 450mg/250ml AE 250 ML IV SCH (18:06)
[2021-04-16] MEDS: TPN PER PHARMACY IV NR ×5 (19:54)
[2021-04-16] MEDS ORDERED: TPN PER PHARMACY IV NR ×11 (20:00)
[2021-04-17] VITALS (102 sets, daily range): BP systolic 86–132; BP diastolic 37–85
[2021-04-17] MEDS: ACCU-CHEK COMFORT CURVE STRIP VI SCH ×4 (00:03→17:35)
[2021-04-17] MEDS: IPRATROPIUM BROM 0.5 MG/2.5ML INH SOL NEB SCH ×3 (00:21→19:59)
[2021-04-17] MEDS: LEVALBUTEROL HCL 1.25 MG/3 ML NEB NEB SCH ×3 (00:21→19:59)
[2021-04-17] MEDS: METOCLOPRAMIDE HCL 5MG/ml INJ 2ml VIAL IV SCH ×4 (00:25→17:40)
[2021-04-17] MEDS: InsuLIN REG 1unit/0.01ml Soln (100units/ml) SC SCH ×5 (00:26→17:37)
[2021-04-17] MEDS: MEROPENEM 1GM IVPB 100 ML IV SCH ×3 (00:46→16:55)
[2021-04-17] MEDS: SODIUM CHLOR 0.9% PF (SALINE LOCK) 10ML VIAL/SYR IV SCH ×3 (05:41→22:45)
[2021-04-17] MEDS: LACTULOSE 20Gm/30ML SOLN PO SCH ×4 (05:42→17:40)
[2021-04-17 05:52] LABS: Basophils # (auto) 0.1 10 ^3/uL (0-0.2); Basophils % (auto) 0.9 % (0.0-2.0); Eosinophils # (auto) 0.2 10 ^3/uL (0-0.8); Hemoglobin 12.5 g/dL (13.5-17.5); Lymphocytes # (auto) 2.2 10 ^3/uL (0.4-5.4); Lymphocytes % (auto) 28.8 % (10.0-50.0); Mean Corpuscular Hemoglobin 29.3 pg (28.0-32.0); Mean Corpuscular Hgb Conc. 35.6 g/dL (32.0-36.0); Mean Corpuscular Volume 82.3 fL (80.0-100.0); Monocytes # (auto) 0.6 10 ^3/uL (0-1.3); Monocytes % (auto) 7.8 % (0.0-12.0); Neutrophils # (auto) 4.6 10 ^3/uL (1.6-8.6); Neutrophils % (auto) 59.5 % (37.0-80.0); Nucleated Red Blood Cells % 0.1 %; Platelet Count (auto) 166 10^3/uL (140-450); Red Blood Cells 4.25 10^6/uL (4.5-5.90); Red Cell Distribution Width 16.6 % (11.8-14.3); White Blood Cell 7.7 10^3/uL (4.4-10.8)
[2021-04-17 06:22] LABS: Albumin 2.5 g/dL (3.4-5.0); Calcium 7.7 mg/dL (8.5-10.1); Magnesium 1.7 mg/dL (1.6-2.6)
[2021-04-17 06:26] LABS: BUN/Creatinine Ratio 66.7; Bilirubin, Total 1.1 mg/dL (0.2-1.0); Phosphorus 2.4 mg/dL (2.5-4.90); Total Protein 5.7 g/dL (6.4-8.2)
[2021-04-17 06:45] LABS: Potassium 2.8 mmol/L (3.5-5.1)
[2021-04-17] MEDS ORDERED: POTASSIUM CHLORIDE 40 MEQ, LIDOCAINE 1% (LOCAL ANESTH.) 4 ML in SODIUM CHL 0.9% 250 ML IV ONE (07:30)
[2021-04-17] MEDS: PROPOFOL 100 ML IV SCH ×7 (08:46→22:00)
[2021-04-17] MEDS: AMIODARONE 450mg/250ml AE 250 ML IV SCH ×2 (08:46→17:56)
[2021-04-17] MEDS: ENOXAPARIN SOD 150 MG/1 ML SYRINGE SC SCH ×2 (09:39→22:46)
[2021-04-17] MEDS: FUROSEMIDE 40 MG/4 ML VIAL IV SCH (09:39)
[2021-04-17] MEDS: DexAMETHasone SOD PHOS 4 MG/1ML SDV INJ IV SCH (09:39)
[2021-04-17] MEDS: PANTOPRAZOLE 40 MG/10 ML VIAL INJ IV SCH (09:40)
[2021-04-17] MEDS: DIGOXIN (250MCG/ML) 2 ML AMPULE IV SCH (09:57)
[2021-04-17] MEDS: ZINC SULFATE 220mg CAP or TAB PO SCH (09:58)
[2021-04-17] MEDS: ASCORBIC ACID 1,000 MG TAB PO SCH (09:58)
[2021-04-17] MEDS: METOPROLOL TARTRATE 25 MG TAB PO SCH ×2 (09:58→22:00)
[2021-04-17] MEDS: CHOLECALCIFEROL (VITD3) 2,000 UNIT CAP/TAB PO SCH (09:58)
[2021-04-17] MEDS: POTASSIUM EFFERVESENT TAB 25 MEQ GT SCH (09:58)
[2021-04-17] MEDS: MIDAZOLAM DRIP 50 mg/50mL 50 ML IV SCH (10:30)
[2021-04-17] MEDS: NOREPINEPHRINE 8 MG/250ML KIT 250 ML IV SCH (10:30)
[2021-04-17] MEDS: MAGNESIUM SULFATE 1GM/100ML 100 ML IV SCH ×2 (11:53→13:03)
[2021-04-17] MEDS ORDERED: POTASSIUM CHL 20MEQ/100ML 100 ML IV ONE (12:45)
[2021-04-17] MEDS: BUDESONIDE (INHALATION) 0.5 MG/2 ML NEB NEB SCH ×2 (12:45→19:59)
[2021-04-17] MEDS ORDERED: POTASSIUM PHOSP 22MEQ(15MMOLE) in NS 100 ML IV ONE (15:00)
[2021-04-17] MEDS: fentaNYL Drip 2500mCg/250mlNS 250 ML IV SCH (17:46)
[2021-04-17] MEDS ORDERED: TPN PER PHARMACY IV NR ×10 (20:00)
[2021-04-18] VITALS (104 sets, daily range): BP systolic 87–143; BP diastolic 3–109
[2021-04-18] MEDS: ACCU-CHEK COMFORT CURVE STRIP VI SCH ×4 (00:41→17:44)
[2021-04-18] MEDS: METOCLOPRAMIDE HCL 5MG/ml INJ 2ml VIAL IV SCH ×4 (00:41→17:43)
[2021-04-18] MEDS: MEROPENEM 1GM IVPB 100 ML IV SCH ×3 (00:42→16:56)
[2021-04-18] MEDS: IPRATROPIUM BROM 0.5 MG/2.5ML INH SOL NEB SCH ×4 (02:00→18:35)
[2021-04-18] MEDS: LEVALBUTEROL HCL 1.25 MG/3 ML NEB NEB SCH ×4 (02:00→18:35)
[2021-04-18] MEDS: PROPOFOL 100 ML IV SCH ×6 (02:00→23:56)
[2021-04-18] MEDS: SODIUM CHLOR 0.9% PF (SALINE LOCK) 10ML VIAL/SYR IV SCH ×3 (06:00→22:24)
[2021-04-18] MEDS: InsuLIN REG 1unit/0.01ml Soln (100units/ml) SC SCH ×4 (06:00→17:45)
[2021-04-18] MEDS: LACTULOSE 20Gm/30ML SOLN PO SCH ×4 (06:00→17:44)
[2021-04-18 06:52] LABS: Albumin 2.5 g/dL (3.4-5.0); Calcium 7.8 mg/dL (8.5-10.1); Potassium 3.5 mmol/L (3.5-5.1)
[2021-04-18 06:58] LABS: BUN/Creatinine Ratio 68.2; Bilirubin, Total 0.7 mg/dL (0.2-1.0); Magnesium 1.9 mg/dL (1.6-2.6); Phosphorus 2.7 mg/dL (2.5-4.90); Total Protein 5.7 g/dL (6.4-8.2)
[2021-04-18] MEDS: BUDESONIDE (INHALATION) 0.5 MG/2 ML NEB NEB SCH ×2 (07:04→18:35)
[2021-04-18] MEDS: ENOXAPARIN SOD 150 MG/1 ML SYRINGE SC SCH ×2 (09:52→22:26)
[2021-04-18] MEDS: DexAMETHasone SOD PHOS 4 MG/1ML SDV INJ IV SCH (09:52)
[2021-04-18] MEDS: FUROSEMIDE 40 MG/4 ML VIAL IV SCH (09:52)
[2021-04-18] MEDS: PANTOPRAZOLE 40 MG/10 ML VIAL INJ IV SCH (09:52)
[2021-04-18] MEDS: DIGOXIN (250MCG/ML) 2 ML AMPULE IV SCH (09:53)
[2021-04-18] MEDS: METOPROLOL TARTRATE 25 MG TAB PO SCH ×2 (10:00→22:00)
[2021-04-18] MEDS: ZINC SULFATE 220mg CAP or TAB PO SCH (10:00)
[2021-04-18] MEDS: POTASSIUM EFFERVESENT TAB 25 MEQ GT SCH (10:00)
[2021-04-18] MEDS: CHOLECALCIFEROL (VITD3) 2,000 UNIT CAP/TAB PO SCH (10:00)
[2021-04-18] MEDS: ASCORBIC ACID 1,000 MG TAB PO SCH (10:00)
[2021-04-18] MEDS ORDERED: MAGNESIUM SULFATE 1GM/100ML 100 ML IV ONE (10:00)
[2021-04-18] MEDS: MIDAZOLAM DRIP 50 mg/50mL 50 ML IV SCH (10:22)
[2021-04-18] MEDS: NOREPINEPHRINE 8 MG/250ML KIT 250 ML IV SCH (10:22)
[2021-04-18] MEDS: AMIODARONE 450mg/250ml AE 250 ML IV SCH (10:45)
[2021-04-18] MEDS: fentaNYL Drip 2500mCg/250mlNS 250 ML IV SCH ×2 (18:15→20:00)
[2021-04-18] MEDS ORDERED: TPN PER PHARMACY IV NR ×11 (20:00)
[2021-04-19] VITALS (104 sets, daily range): BP systolic 82–143; BP diastolic 38–89
[2021-04-19] MEDS: NOREPINEPHRINE 8 MG/250ML KIT 250 ML IV SCH
[2021-04-19] MEDS: IPRATROPIUM BROM 0.5 MG/2.5ML INH SOL NEB SCH ×4 (00:28→18:50)
[2021-04-19] MEDS: LEVALBUTEROL HCL 1.25 MG/3 ML NEB NEB SCH ×4 (00:28→18:50)
[2021-04-19] MEDS: METOCLOPRAMIDE HCL 5MG/ml INJ 2ml VIAL IV SCH ×4 (01:05→17:36)
[2021-04-19] MEDS: ACCU-CHEK COMFORT CURVE STRIP VI SCH ×4 (01:06→17:33)
[2021-04-19] MEDS: InsuLIN REG 1unit/0.01ml Soln (100units/ml) SC SCH ×4 (01:07→17:34)
[2021-04-19] MEDS: MEROPENEM 1GM IVPB 100 ML IV SCH ×3 (01:09→17:36)
[2021-04-19 04:45] LABS: INR 1.08 (0.9-1.15); Partial Thromboplastin Time 27.3 sec (23.0-31.2)
[2021-04-19 04:57] LABS: Chloride 101 mmol/L (98-107); Potassium 3.8 mmol/L (3.5-5.1); Sodium 137 mmol/L (136-145)
[2021-04-19 05:06] LABS: Alanine Aminotransferase 86 U/L (16-61); Albumin 2.6 g/dL (3.4-5.0); Alkaline Phosphatase 67 U/L (45-117); Anion Gap 6 (5-15); Aspartate Aminotransferase 55 U/L (15-37); BUN/Creatinine Ratio 113.3; Bilirubin, Total 0.7 mg/dL (0.2-1.0); Blood Urea Nitrogen 17 mg/dL (7-18); Carbon Dioxide 30 mmol/L (21-32); GFR African American 946 mL/min; GFR Non-African American 782 mL/min; Glucose 120 mg/dL (74-106); Magnesium 1.9 mg/dL (1.6-2.6); Phosphorus 2.6 mg/dL (2.5-4.90)
[2021-04-19] MEDS: LACTULOSE 20Gm/30ML SOLN PO SCH ×4 (06:00→18:00)
[2021-04-19] MEDS: BUDESONIDE (INHALATION) 0.5 MG/2 ML NEB NEB SCH ×2 (06:24→18:50)
[2021-04-19] MEDS: SODIUM CHLOR 0.9% PF (SALINE LOCK) 10ML VIAL/SYR IV SCH ×2 (06:55→14:42)
[2021-04-19] MEDS: MIDAZOLAM DRIP 50 mg/50mL 50 ML IV SCH ×2 (08:34→18:28)
[2021-04-19] MEDS: PANTOPRAZOLE 40 MG/10 ML VIAL INJ IV SCH (09:31)
[2021-04-19] MEDS: FUROSEMIDE 40 MG/4 ML VIAL IV SCH (09:31)
[2021-04-19] MEDS: PROPOFOL 100 ML IV SCH ×4 (09:31→18:28)
[2021-04-19] MEDS: DexAMETHasone SOD PHOS 4 MG/1ML SDV INJ IV SCH (09:31)
[2021-04-19] MEDS: DIGOXIN (250MCG/ML) 2 ML AMPULE IV SCH (09:32)
[2021-04-19] MEDS: ENOXAPARIN SOD 150 MG/1 ML SYRINGE SC SCH (09:32)
[2021-04-19] MEDS: ASCORBIC ACID 1,000 MG TAB PO SCH (10:00)
[2021-04-19] MEDS: ZINC SULFATE 220mg CAP or TAB PO SCH (10:00)
[2021-04-19] MEDS: METOPROLOL TARTRATE 25 MG TAB PO SCH ×2 (10:00→22:00)
[2021-04-19] MEDS: CHOLECALCIFEROL (VITD3) 2,000 UNIT CAP/TAB PO SCH (10:00)
[2021-04-19] MEDS: POTASSIUM EFFERVESENT TAB 25 MEQ GT SCH (10:00)
[2021-04-19] MEDS ORDERED: MAGNESIUM SULFATE 1GM/100ML 100 ML IV ONE (13:15)
[2021-04-19] MEDS: AMIODARONE 450mg/250ml AE 250 ML IV SCH (16:26)
[2021-04-19] MEDS ORDERED: TPN PER PHARMACY IV NR ×11 (20:00)
[2021-04-20] VITALS (98 sets, daily range): BP systolic 93–138; BP diastolic 55–89
[2021-04-20] MEDS: IPRATROPIUM BROM 0.5 MG/2.5ML INH SOL NEB SCH ×3 (00:35→18:51)
[2021-04-20] MEDS: BUDESONIDE (INHALATION) 0.5 MG/2 ML NEB NEB SCH ×3 (00:35→18:51)
[2021-04-20] MEDS: SODIUM CHLOR 0.9% PF (SALINE LOCK) 10ML VIAL/SYR IV SCH ×4 (01:21→20:46)
[2021-04-20] MEDS: ENOXAPARIN SOD 150 MG/1 ML SYRINGE SC SCH ×3 (01:22→20:49)
[2021-04-20] MEDS: ACCU-CHEK COMFORT CURVE STRIP VI SCH ×4 (01:23→18:00)
[2021-04-20] MEDS: METOCLOPRAMIDE HCL 5MG/ml INJ 2ml VIAL IV SCH ×4 (01:23→18:00)
[2021-04-20] MEDS: MEROPENEM 1GM IVPB 100 ML IV SCH ×2 (01:24→09:00)
[2021-04-20] MEDS: fentaNYL Drip 2500mCg/250mlNS 250 ML IV SCH (01:25)
[2021-04-20] MEDS: LACTULOSE 20Gm/30ML SOLN PO SCH ×4 (06:00→18:00)
[2021-04-20] MEDS: InsuLIN REG 1unit/0.01ml Soln (100units/ml) SC SCH ×4 (06:00→18:00)
[2021-04-20 06:20] LABS: Basophils # (auto) 0.1 10 ^3/uL (0-0.2); Basophils % (auto) 0.8 % (0.0-2.0); Eosinophils # (auto) 0.2 10 ^3/uL (0-0.8); Eosinophils % (auto) 2.2 % (0.0-7.0); Hematocrit 34.9 % (41.0-53.0); Hemoglobin 11.8 g/dL (13.5-17.5); Lymphocytes # (auto) 2.5 10 ^3/uL (0.4-5.4); Lymphocytes % (auto) 32.3 % (10.0-50.0); Mean Corpuscular Hemoglobin 28.6 pg (28.0-32.0); Mean Corpuscular Hgb Conc. 33.8 g/dL (32.0-36.0); Mean Corpuscular Volume 84.4 fL (80.0-100.0); Monocytes # (auto) 0.5 10 ^3/uL (0-1.3); Monocytes % (auto) 6.1 % (0.0-12.0); Neutrophils # (auto) 4.6 10 ^3/uL (1.6-8.6); Neutrophils % (auto) 58.6 % (37.0-80.0); Nucleated Red Blood Cells % 0.2 %; Platelet Count (auto) 184 10^3/uL (140-450); Red Blood Cells 4.13 10^6/uL (4.5-5.90); Red Cell Distribution Width 17.3 % (11.8-14.3); White Blood Cell 7.8 10^3/uL (4.4-10.8)
[2021-04-20 06:39] LABS: Potassium 5.5 mmol/L (3.5-5.1)
[2021-04-20 06:56] LABS: Albumin 2.3 g/dL (3.4-5.0); BUN/Creatinine Ratio 74.1; Bilirubin, Total 0.6 mg/dL (0.2-1.0); Calcium 7.4 mg/dL (8.5-10.1); Magnesium 2.3 mg/dL (1.6-2.6); Phosphorus 4.1 mg/dL (2.5-4.90); Pre Albumin 25.1 mg/dL (20.0-40.0); Total Protein 5.6 g/dL (6.4-8.2)
[2021-04-20] MEDS: AMIODARONE 450mg/250ml AE 250 ML IV SCH ×2 (07:45→20:44)
[2021-04-20] MEDS: LEVALBUTEROL HCL 1.25 MG/3 ML NEB NEB SCH ×2 (08:14→18:51)
[2021-04-20] MEDS: POTASSIUM EFFERVESENT TAB 25 MEQ GT SCH (09:04)
[2021-04-20] MEDS: CHOLECALCIFEROL (VITD3) 2,000 UNIT CAP/TAB PO SCH (09:05)
[2021-04-20] MEDS: ZINC SULFATE 220mg CAP or TAB PO SCH (09:05)
[2021-04-20] MEDS: ASCORBIC ACID 1,000 MG TAB PO SCH (09:05)
[2021-04-20] MEDS: DexAMETHasone SOD PHOS 4 MG/1ML SDV INJ IV SCH (09:57)
[2021-04-20] MEDS: PANTOPRAZOLE 40 MG/10 ML VIAL INJ IV SCH (09:58)
[2021-04-20] MEDS: FUROSEMIDE 40 MG/4 ML VIAL IV SCH (09:58)
[2021-04-20] MEDS: METOPROLOL TARTRATE 25 MG TAB PO SCH ×2 (09:58→20:44)
[2021-04-20] MEDS: DIGOXIN (250MCG/ML) 2 ML AMPULE IV SCH (09:58)
[2021-04-20] MEDS: NOREPINEPHRINE 8 MG/250ML KIT 250 ML IV SCH (10:30)
[2021-04-20] MEDS ORDERED: CATHFLO ACTIVASE (ALTEPLASE) 2 MG VIAL IV ONE (11:00)
[2021-04-20] MEDS ORDERED: TPN PER PHARMACY IV NR ×10 (20:00)
[2021-04-20] MEDS: PROPOFOL 100 ML IV SCH (20:47)
[2021-04-21] VITALS (88 sets, daily range): BP systolic 77–139; BP diastolic 42–87
[2021-04-21] MEDS: IPRATROPIUM BROM 0.5 MG/2.5ML INH SOL NEB SCH ×4 (00:29→18:31)
[2021-04-21] MEDS: LEVALBUTEROL HCL 1.25 MG/3 ML NEB NEB SCH ×4 (00:30→18:31)
[2021-04-21] MEDS: METOCLOPRAMIDE HCL 5MG/ml INJ 2ml VIAL IV SCH ×5 (00:48→23:52)
[2021-04-21 04:47] LABS: Basophils # (auto) 0 10 ^3/uL (0-0.2); Basophils % (auto) 0.5 % (0.0-2.0); Eosinophils # (auto) 0.1 10 ^3/uL (0-0.8); Eosinophils % (auto) 1.1 % (0.0-7.0); Hematocrit 34.4 % (41.0-53.0); Hemoglobin 11.7 g/dL (13.5-17.5); Lymphocytes # (auto) 2.1 10 ^3/uL (0.4-5.4); Lymphocytes % (auto) 27.1 % (10.0-50.0); Mean Corpuscular Hemoglobin 28.9 pg (28.0-32.0); Monocytes # (auto) 0.5 10 ^3/uL (0-1.3); Monocytes % (auto) 6.9 % (0.0-12.0); Neutrophils % (auto) 64.4 % (37.0-80.0); Nucleated Red Blood Cells % 0.3 %; Platelet Count (auto) 204 10^3/uL (140-450); Red Blood Cells 4.04 10^6/uL (4.5-5.90); Red Cell Distribution Width 17.5 % (11.8-14.3); White Blood Cell 7.8 10^3/uL (4.4-10.8)
[2021-04-21] MEDS: LACTULOSE 20Gm/30ML SOLN PO SCH ×6 (05:04→23:52)
[2021-04-21 05:08] LABS: Calcium 7.9 mg/dL (8.5-10.1); Potassium 3.8 mmol/L (3.5-5.1)
[2021-04-21 05:09] LABS: INR 1.04 (0.9-1.15); Partial Thromboplastin Time 26.2 sec (23.0-31.2)
[2021-04-21 05:13] LABS: Albumin 2.5 g/dL (3.4-5.0); Bilirubin, Total 0.5 mg/dL (0.2-1.0); Phosphorus 3.7 mg/dL (2.5-4.90); Total Protein 5.9 g/dL (6.4-8.2)
[2021-04-21] MEDS: ACCU-CHEK COMFORT CURVE STRIP VI SCH ×4 (05:22→18:21)
[2021-04-21] MEDS: SODIUM CHLOR 0.9% PF (SALINE LOCK) 10ML VIAL/SYR IV SCH ×3 (05:28→21:43)
[2021-04-21] MEDS: InsuLIN REG 1unit/0.01ml Soln (100units/ml) SC SCH ×4 (05:28→18:20)
[2021-04-21] MEDS: BUDESONIDE (INHALATION) 0.5 MG/2 ML NEB NEB SCH ×2 (06:28→18:31)
[2021-04-21] MEDS: PROPOFOL 100 ML IV SCH (08:17)
[2021-04-21] MEDS: MIDAZOLAM DRIP 50 mg/50mL 50 ML IV SCH ×2 (09:21→16:19)
[2021-04-21] MEDS: CHOLECALCIFEROL (VITD3) 2,000 UNIT CAP/TAB PO SCH (10:00)
[2021-04-21] MEDS: METOPROLOL TARTRATE 25 MG TAB PO SCH (10:00)
[2021-04-21] MEDS: ZINC SULFATE 220mg CAP or TAB PO SCH (10:00)
[2021-04-21] MEDS: ASCORBIC ACID 1,000 MG TAB PO SCH (10:00)
[2021-04-21] MEDS: NOREPINEPHRINE 8 MG/250ML KIT 250 ML IV SCH (10:30)
[2021-04-21] MEDS: fentaNYL Drip 2500mCg/250mlNS 250 ML IV SCH (12:55)
[2021-04-21] MEDS: AMIODARONE 450mg/250ml AE 250 ML IV SCH (13:45)
[2021-04-21] MEDS: DexAMETHasone SOD PHOS 4 MG/1ML SDV INJ IV SCH (15:12)
[2021-04-21] MEDS: DIGOXIN (250MCG/ML) 2 ML AMPULE IV SCH (15:17)
[2021-04-21] MEDS: PANTOPRAZOLE 40 MG/10 ML VIAL INJ IV SCH (15:20)
[2021-04-21] MEDS: ENOXAPARIN SOD 150 MG/1 ML SYRINGE SC SCH ×2 (15:20→19:37)
[2021-04-21] MEDS: FUROSEMIDE 40 MG/4 ML VIAL IV SCH (15:20)
[2021-04-21] MEDS ORDERED: TPN PER PHARMACY IV NR ×20 (20:00)
[2021-04-22] VITALS (82 sets, daily range): BP systolic 87–139; BP diastolic 7–104
[2021-04-22] MEDS: ACCU-CHEK COMFORT CURVE STRIP VI SCH ×4 (00:08→18:13)
[2021-04-22] MEDS: InsuLIN REG 1unit/0.01ml Soln (100units/ml) SC SCH ×4 (00:10→18:15)
[2021-04-22] MEDS: IPRATROPIUM BROM 0.5 MG/2.5ML INH SOL NEB SCH ×3 (00:21→19:04)
[2021-04-22] MEDS: LEVALBUTEROL HCL 1.25 MG/3 ML NEB NEB SCH ×3 (00:21→19:04)
[2021-04-22 04:14] LABS: Basophils # (auto) 0.1 10 ^3/uL (0-0.2); Basophils % (auto) 0.8 % (0.0-2.0); Eosinophils # (auto) 0.1 10 ^3/uL (0-0.8); Eosinophils % (auto) 0.7 % (0.0-7.0); Hematocrit 34.7 % (41.0-53.0); Hemoglobin 11.9 g/dL (13.5-17.5); Lymphocytes # (auto) 1.8 10 ^3/uL (0.4-5.4); Lymphocytes % (auto) 18.2 % (10.0-50.0); Mean Corpuscular Hemoglobin 28.7 pg (28.0-32.0); Mean Corpuscular Hgb Conc. 34.2 g/dL (32.0-36.0); Monocytes # (auto) 0.8 10 ^3/uL (0-1.3); Monocytes % (auto) 7.9 % (0.0-12.0); Neutrophils # (auto) 7.1 10 ^3/uL (1.6-8.6); Neutrophils % (auto) 72.4 % (37.0-80.0); Nucleated Red Blood Cells % 0.1 %; Platelet Count (auto) 268 10^3/uL (140-450); Red Blood Cells 4.13 10^6/uL (4.5-5.90); Red Cell Distribution Width 17.3 % (11.8-14.3); White Blood Cell 9.7 10^3/uL (4.4-10.8)
[2021-04-22 04:33] LABS: Albumin 2.5 g/dL (3.4-5.0); Magnesium 1.8 mg/dL (1.6-2.6); Potassium 4.2 mmol/L (3.5-5.1)
[2021-04-22 04:39] LABS: Bilirubin, Total 0.7 mg/dL (0.2-1.0); Phosphorus 4.2 mg/dL (2.5-4.90); Total Protein 5.9 g/dL (6.4-8.2)
[2021-04-22] MEDS: AMIODARONE 450mg/250ml AE 250 ML IV SCH ×2 (04:45→19:45)
[2021-04-22] MEDS: LACTULOSE 20Gm/30ML SOLN PO SCH ×3 (05:38→18:00)
[2021-04-22] MEDS: SODIUM CHLOR 0.9% PF (SALINE LOCK) 10ML VIAL/SYR IV SCH ×3 (05:38→21:04)
[2021-04-22] MEDS: METOCLOPRAMIDE HCL 5MG/ml INJ 2ml VIAL IV SCH ×3 (05:41→18:13)
[2021-04-22] MEDS: BUDESONIDE (INHALATION) 0.5 MG/2 ML NEB NEB SCH ×2 (09:52→19:04)
[2021-04-22] MEDS ORDERED: fentaNYL CITRATE 100 MCG/2 ML VL ONE ×2 (10:02→11:27)
[2021-04-22] MEDS: MIDAZOLAM DRIP 50 mg/50mL 50 ML IV SCH ×3 (10:12→23:00)
[2021-04-22] MEDS ORDERED: LIDOCAINE W/ EPINEPHRINE 1% 20ML VIAL ONE (10:17)
[2021-04-22] MEDS ORDERED: levoFLOXacin 500MG 100 ML IV ONE (10:24)
[2021-04-22] MEDS: fentaNYL Drip 2500mCg/250mlNS 250 ML IV SCH (12:30)
[2021-04-22] MEDS: FUROSEMIDE 40 MG/4 ML VIAL IV SCH (12:52)
[2021-04-22] MEDS: DexAMETHasone SOD PHOS 4 MG/1ML SDV INJ IV SCH (12:52)
[2021-04-22] MEDS: PANTOPRAZOLE 40 MG/10 ML VIAL INJ IV SCH (12:53)
[2021-04-22] MEDS: ENOXAPARIN SOD 150 MG/1 ML SYRINGE SC SCH ×2 (12:55→21:06)
[2021-04-22] MEDS: ASCORBIC ACID 1,000 MG TAB PO SCH (12:55)
[2021-04-22] MEDS: CHOLECALCIFEROL (VITD3) 2,000 UNIT CAP/TAB PO SCH (12:55)
[2021-04-22] MEDS: ZINC SULFATE 220mg CAP or TAB PO SCH (12:55)
[2021-04-22] MEDS: NOREPINEPHRINE 8 MG/250ML KIT 250 ML IV SCH (12:58)
[2021-04-22] MEDS ORDERED: MAGNESIUM SULFATE 1GM/100ML 100 ML IV ONE (14:00)
[2021-04-22] MEDS: PROPOFOL 100 ML IV SCH ×3 (15:10→23:00)
[2021-04-22] MEDS: DIGOXIN (250MCG/ML) 2 ML AMPULE IV SCH (15:13)
[2021-04-22] MEDS ORDERED: TPN PER PHARMACY IV NR ×10 (20:00)
[2021-04-23] VITALS (101 sets, daily range): BP systolic 90–153; BP diastolic 49–90
[2021-04-23] MEDS: METOCLOPRAMIDE HCL 5MG/ml INJ 2ml VIAL IV SCH ×5 (00:02→23:49)
[2021-04-23] MEDS: ACCU-CHEK COMFORT CURVE STRIP VI SCH ×5 (00:04→23:50)
[2021-04-23] MEDS: fentaNYL Drip 2500mCg/250mlNS 250 ML IV SCH ×2 (00:27→20:42)
[2021-04-23] MEDS: LEVALBUTEROL HCL 1.25 MG/3 ML NEB NEB SCH ×3 (00:28→19:30)
[2021-04-23] MEDS: IPRATROPIUM BROM 0.5 MG/2.5ML INH SOL NEB SCH ×3 (00:28→19:32)
[2021-04-23] MEDS: InsuLIN REG 1unit/0.01ml Soln (100units/ml) SC SCH ×5 (00:30→23:50)
[2021-04-23 04:34] LABS: Basophils # (auto) 0 10 ^3/uL (0-0.2); Basophils % (auto) 0.2 % (0.0-2.0); Eosinophils # (auto) 0 10 ^3/uL (0-0.8); Eosinophils % (auto) 0.4 % (0.0-7.0); Hematocrit 33.4 % (41.0-53.0); Hemoglobin 11.6 g/dL (13.5-17.5); Lymphocytes # (auto) 2.8 10 ^3/uL (0.4-5.4); Lymphocytes % (auto) 28.8 % (10.0-50.0); Mean Corpuscular Hemoglobin 28.9 pg (28.0-32.0); Mean Corpuscular Hgb Conc. 34.6 g/dL (32.0-36.0); Mean Corpuscular Volume 83.5 fL (80.0-100.0); Monocytes # (auto) 0.7 10 ^3/uL (0-1.3); Monocytes % (auto) 6.8 % (0.0-12.0); Neutrophils # (auto) 6.1 10 ^3/uL (1.6-8.6); Neutrophils % (auto) 63.8 % (37.0-80.0); Nucleated Red Blood Cells % 0.2 %; Platelet Count (auto) 246 10^3/uL (140-450); Red Cell Distribution Width 17.3 % (11.8-14.3); White Blood Cell 9.6 10^3/uL (4.4-10.8)
[2021-04-23 04:46] LABS: Potassium 3.5 mmol/L (3.5-5.1)
[2021-04-23 04:50] LABS: Albumin 2.5 g/dL (3.4-5.0); BUN/Creatinine Ratio 104.8; Calcium 8.4 mg/dL (8.5-10.1)
[2021-04-23 05:04] LABS: Bilirubin, Total 0.7 mg/dL (0.2-1.0); Phosphorus 2.7 mg/dL (2.5-4.90); Total Protein 5.9 g/dL (6.4-8.2)
[2021-04-23] MEDS: LACTULOSE 20Gm/30ML SOLN PO SCH ×5 (06:00→23:50)
[2021-04-23] MEDS: MIDAZOLAM DRIP 50 mg/50mL 50 ML IV SCH ×3 (06:00→22:33)
[2021-04-23] MEDS: PROPOFOL 100 ML IV SCH ×3 (06:00→20:42)
[2021-04-23] MEDS: SODIUM CHLOR 0.9% PF (SALINE LOCK) 10ML VIAL/SYR IV SCH ×3 (06:12→22:16)
[2021-04-23] MEDS: BUDESONIDE (INHALATION) 0.5 MG/2 ML NEB NEB SCH ×2 (07:16→19:32)
[2021-04-23] MEDS: CHOLECALCIFEROL (VITD3) 2,000 UNIT CAP/TAB PO SCH (07:47)
[2021-04-23] MEDS: ZINC SULFATE 220mg CAP or TAB PO SCH (07:48)
[2021-04-23] MEDS: ASCORBIC ACID 1,000 MG TAB PO SCH (07:48)
[2021-04-23] MEDS: DexAMETHasone SOD PHOS 4 MG/1ML SDV INJ IV SCH (08:30)
[2021-04-23] MEDS: FUROSEMIDE 40 MG/4 ML VIAL IV SCH (08:31)
[2021-04-23] MEDS: DIGOXIN (250MCG/ML) 2 ML AMPULE IV SCH (08:31)
[2021-04-23] MEDS: PANTOPRAZOLE 40 MG/10 ML VIAL INJ IV SCH (08:32)
[2021-04-23] MEDS: NOREPINEPHRINE 8 MG/250ML KIT 250 ML IV SCH (08:32)
[2021-04-23] MEDS: ENOXAPARIN SOD 150 MG/1 ML SYRINGE SC SCH ×2 (08:32→22:16)
[2021-04-23] MEDS: AMIODARONE 450mg/250ml AE 250 ML IV SCH (08:34)
[2021-04-23] MEDS: LORazepam 2MG/ML-1ML VIAL IV PRN (14:19)
[2021-04-23] MEDS ORDERED: TPN PER PHARMACY IV NR ×12 (20:00)
[2021-04-24] VITALS (65 sets, daily range): BP systolic 84–138; BP diastolic 47–89
[2021-04-24] MEDS: IPRATROPIUM BROM 0.5 MG/2.5ML INH SOL NEB SCH ×3 (00:35→11:35)
[2021-04-24] MEDS: LEVALBUTEROL HCL 1.25 MG/3 ML NEB NEB SCH ×3 (00:35→11:35)
[2021-04-24] MEDS: PROPOFOL 100 ML IV SCH ×3 (01:42→13:09)
[2021-04-24] MEDS: MIDAZOLAM DRIP 50 mg/50mL 50 ML IV SCH ×2 (01:43→13:32)
[2021-04-24 04:57] LABS: Potassium 3.4 mmol/L (3.5-5.1)
[2021-04-24 05:07] LABS: Albumin 2.7 g/dL (3.4-5.0); BUN/Creatinine Ratio 129.2; Bilirubin, Total 0.8 mg/dL (0.2-1.0); Calcium 8.2 mg/dL (8.5-10.1); Magnesium 1.9 mg/dL (1.6-2.6); Phosphorus 3.9 mg/dL (2.5-4.90); Total Protein 6.3 g/dL (6.4-8.2)
[2021-04-24] MEDS: InsuLIN REG 1unit/0.01ml Soln (100units/ml) SC SCH ×2 (06:00→12:18)
[2021-04-24] MEDS: ACCU-CHEK COMFORT CURVE STRIP VI SCH ×2 (06:00→12:17)
[2021-04-24] MEDS: LACTULOSE 20Gm/30ML SOLN PO SCH ×2 (06:30→12:02)
[2021-04-24] MEDS: METOCLOPRAMIDE HCL 5MG/ml INJ 2ml VIAL IV SCH ×2 (06:30→12:02)
[2021-04-24] MEDS: SODIUM CHLOR 0.9% PF (SALINE LOCK) 10ML VIAL/SYR IV SCH ×2 (06:31→13:01)
[2021-04-24] MEDS: BUDESONIDE (INHALATION) 0.5 MG/2 ML NEB NEB SCH (06:48)
[2021-04-24] MEDS: DexAMETHasone SOD PHOS 4 MG/1ML SDV INJ IV SCH (08:23)
[2021-04-24] MEDS: FUROSEMIDE 40 MG/4 ML VIAL IV SCH (08:24)
[2021-04-24] MEDS: PANTOPRAZOLE 40 MG/10 ML VIAL INJ IV SCH (08:25)
[2021-04-24] MEDS: ZINC SULFATE 220mg CAP or TAB PO SCH (08:25)
[2021-04-24] MEDS: CHOLECALCIFEROL (VITD3) 2,000 UNIT CAP/TAB PO SCH (08:26)
[2021-04-24] MEDS: ASCORBIC ACID 1,000 MG TAB PO SCH (08:26)
[2021-04-24] MEDS: ENOXAPARIN SOD 150 MG/1 ML SYRINGE SC SCH (08:27)
[2021-04-24] MEDS ORDERED: DIGOXIN 0.125 MG TAB PO SCH (10:00)
[2021-04-24] MEDS ORDERED: AMIODARONE HCL 200 MG TAB PO SCH (10:00)
[2021-04-24] MEDS: NOREPINEPHRINE 8 MG/250ML KIT 250 ML IV SCH (10:30)
[2021-04-24] MEDS ORDERED: MAGNESIUM SULFATE 1GM/100ML 100 ML IV ONE (11:00)
[2021-04-24] MEDS: POTASSIUM CHL 20MEQ/100ML 100 ML IV SCH ×2 (12:02→14:57)
[2021-04-24] MEDS: fentaNYL Drip 2500mCg/250mlNS 250 ML IV SCH (13:00)
== END 2021-04-24 15:20 | DRG 5 ==
LOC: ER 19:15 → TELE 03-21 01:02 → TELE-EAST 03-21 02:58 → ICU WEST 03-22 09:45
PROVIDERS: ADMIT Nurse Practitioner Family; ATTEND Internal Medicine
PROC: XW033E5 Introduction of Remdesivir Anti-infective into Peripheral Vein, Percutaneous Approach, New Technology Group 5 (ICD-10-PCS; 2021-03-21)
PROC: XW13325 Transfusion of Convalescent Plasma (Nonautologous) into Peripheral Vein, Percutaneous Approach, New Technology Group 5 (ICD-10-PCS; 2021-03-21)
PROC: 5A1955Z Respiratory Ventilation, Greater than 96 Consecutive Hours (ICD-10-PCS; principal; 2021-03-22)
PROC: 0BH17EZ Insertion of Endotracheal Airway into Trachea, Via Natural or Artificial Opening (ICD-10-PCS; 2021-03-22)
PROC: 02HV33Z Insertion of Infusion Device into Superior Vena Cava, Percutaneous Approach (ICD-10-PCS; 2021-04-13)
PROC: 0DJ08ZZ Inspection of Upper Intestinal Tract, Via Natural or Artificial Opening Endoscopic (ICD-10-PCS; 2021-04-22)
PROC: 0B110F4 Bypass Trachea to Cutaneous with Tracheostomy Device, Open Approach (ICD-10-PCS; 2021-04-22)
DX: A41.89 Other specified sepsis (principal); U07.1 COVID-19; N17.0 Acute kidney failure with tubular necrosis; G72.81 Critical illness myopathy; R65.21 Severe sepsis with septic shock; I74.3 Embolism and thrombosis of arteries of the lower extremities; E87.3 Alkalosis; J96.01 Acute respiratory failure with hypoxia; I48.0 Paroxysmal atrial fibrillation; G40.401 Other generalized epilepsy and epileptic syndromes, not intractable, with status epilepticus; D68.59 Other primary thrombophilia; I50.33 Acute on chronic diastolic (congestive) heart failure; E66.01 Morbid (severe) obesity due to excess calories; J12.82 Pneumonia due to coronavirus disease 2019; L97.909 Non-pressure chronic ulcer of unspecified part of unspecified lower leg with unspecified severity; I48.92 Unspecified atrial flutter; L03.90 Cellulitis, unspecified; E55.9 Vitamin D deficiency, unspecified; E87.1 Hypo-osmolality and hyponatremia; E87.5 Hyperkalemia; E88.09 Other disorders of plasma-protein metabolism, not elsewhere classified; L30.9 Dermatitis, unspecified; S33.5XXA Sprain of ligaments of lumbar spine, initial encounter; E11.65 Type 2 diabetes mellitus with hyperglycemia; J98.11 Atelectasis; D89.839 Cytokine release syndrome, grade unspecified; K29.70 Gastritis, unspecified, without bleeding; R74.01 Elevation of levels of liver transaminase levels; Z68.42 Body mass index [BMI] 45.0-49.9, adult; Z83.3 Family history of diabetes mellitus; Z82.49 Family history of ischemic heart disease and other diseases of the circulatory system; Z88.0 Allergy status to penicillin; Z88.1 Allergy status to other antibiotic agents; Z91.19 Patient's noncompliance with other medical treatment and regimen
CPT/HCPCS: 36415; 36569; 36600; 71045; 74018; 80048; 80053; 80061; 80162; 81001; 82040; 82306; 82570; 82728; 82805; 82947; 82962; 83036; 83605; 83615; 83735; 83880; 84100; 84132; 84156; 84300; 84443; 84478; 84484; 84550; 85007; 85025; 85027; 85049; 85379; 85610; 85730; 86141; 86850; 86900; 86901; 87040; 87070; 87077; 87081; 87086; 87186; 87205; 87426; 93005; 93306; 93926; 93970; 94002; 94003; 94640; 95819; 96361; 96374; A4618; C9113; G0378; J0330; J1100; J1815; J1956; J2001; J2185; J2250; J2405; J2704; J3480; J3490; J7060; J7131